=== PATIENT | female | born 1985 | race Caucasian/White ===

== ENCOUNTER → 2019-07-26 | Outpatient (CLI) | payer MEDICAID, SELFPAY ==
[2019-07-26 14:29] LABS: Absolute Lymphocyte Count 1.89 X10^3/uL (0.83-4.51); Absolute Neutrophil Count 5.6 X10^3/uL (2.0-7.7); Basophil# 0.03 X10^3/uL; Basophil% 0.4 % (0-1); Eosinophil# 0.15 X10^3/uL; Eosinophils% 1.8 % (0-5); Hematocrit 40.6 % (37-47); Hemoglobin 13.2 g/dL (12.0-15.0); Lymphocyte # 1.89 X10^3/ul (4.0); Lymphocyte % 23.2 % (19-41); Mean Corp Hgb Conc 32.5 g/dL (32-36); Mean Corpuscular Hgb 30.8 pg (27.0-32.0); Mean Corpuscular Volume 94.9 fL (81-99); Mean Platelet Vol. 10.1 fl (6.2-12.0); Monocyte# 0.51 X10^3/uL; Monocyte% 6.3 % (0-10); NRBC Flagged by Analyzer 0 % (0-5); Neutrophil # 5.55 X10^3/uL (2.7-7.7); Neutrophil % 68.1 % (47-70); Platelet Count 197 K/mm3 (150-450); RBC Distribution Width CV 14.5 % (11.6-14.6); Red Blood Count 4.28 M/mm3 (4.2-5.4); White Blood Count 8.2 K/mm3 (4.4-11.0)
[2019-07-26 14:30] LABS: Color, Urine Yellow (Yellow); Glucose, Dipstick Normal (Normal); Ketone-Dipstick 5 mg/dl (Negative); Leukocyte Esterase-Dipstick 100 /ul (Negative); Nitrite-Dipstick Negative (Negative); Occult Blood-Urine Negative /ul (Negative); Protein-Dipstick 15 mg/dl (Negative); Urine Bilirubin Dipstick Negative (Negative); Urine Clarity Sl. Cloudy (Clear); Urine Urobilinogen 1 mg/dl (Normal); Urine pH 6.5 (5.0 - 8.0)
[2019-07-26 14:39] LABS: Amphetamine Urine VISTA NEGATIVE (<1000 ng/mL); Barbiturate Urine VISTA NEGATIVE (< 200 ng/mL); Benzodiazepine Urine VISTA NEGATIVE (< 200 ng/mL); Cocaine Urine VISTA NEGATIVE (< 300 ng/mL); Ecstacy Urine VISTA NEGATIVE (< 500 ng/mL); Methadone Urine VISTA NEGATIVE (< 300 ng/mL); PCP Urine VISTA NEGATIVE (< 25 ng/mL); THC Urine VISTA NEGATIVE (< 50 ng/mL); Vista UDS pH Range 6
[2019-07-26 14:46] LABS: Thyroid Stim Hormone (TSH) 2.12 uIU/mL (0.358-3.74)
[2019-07-26 21:53] LABS: Chlamydia Trachomatis by PCR Negative (Negative); Neisserai gonorrhoeae by PCR Negative (Negative); Probe Check PASS; Sample Adequacy Control PASS; Specimen Processing Control PASS
[2019-07-27 09:25] LABS: HIV - WCH Non-Reactive (Nonreactive); Hepatitis B Surface Antigen Non-Reactive (Nonreactive); Hepatitis C Antibody Non-Reactive (Nonreactive); Rubella IgG 318.7 IU/mL; Vitamin D,25 Hydroxy 19.8 ng/mL (29.95-100.01)
[2019-07-28 09:54] LABS: Toxoplasma Gondii IgG 36.3 IU/mL (0.0-7.1); Toxoplasma Gondii IgM < 3.0 AU/mL (0.0-7.9)
[2019-07-30 00:53] LABS: Prenatal RPR NONREACTIVE (NONREACTIVE)
[2019-07-30 12:44] LABS: HPV APTIMA, High Risk Positive (Negative)
== END | disposition home or self-care (01) ==
LOC: LABSPEC 13:58
PROVIDERS: Visit Provider Obstetrics & Gynecology
DX: Z34.82 Encounter for supervision of other normal pregnancy, second trimester (principal); Z11.3 Encounter for screening for infections with a predominantly sexual mode of transmission
CPT/HCPCS: 80307; 81002; 82306; 84443; 85025; 86703; 86762; 86777; 86778; 86803; 87340; 87491; 87591; 87624; 88175; G0145

== ENCOUNTER → 2019-08-17 17:42 | Outpatient (CLI) | payer MEDICAID, SELFPAY ==
[2015-10-19 08:22] VITALS: BMI 38.4
--- NOTE | 2019-08-17 16:00 | CER_PTH ---
PATIENT: NENA RODGERS LOC: [facility] U#:[id number] AGE/SX: 40/F ROOM: RE08/17/[address]: Dr. Cindy Mota MD : [id number] BED: DIS: SPEC #: [id number] RECD: 08/17/19 17:42 STATUS: OTTO CHRISTIAN #: [id number] ANA PAULA: 08/17/19 16:[address]: Cindy Matute DEPT: SURGICAL PATHOLOGY RECD BY: Sylvie Valdez ENTERED: 08/18/19 09:46 SP TYPE: CERV OTHR DR: No Primary Care Phys Tissues: Uterine cervix, NOS Procedures: Surgery Specimen Level IV HEADER OPERATION: Colposcopy PRE-OP DIAGNOSIS: LGSIL, positive HR-HPV, pap 07/26/19, LMP 04/14/19, TISSUE SUBMITTED: Cervical biopsy at 3 o'clock MICROSCOPIC DIAGNOSIS Cervix at 3 o'clock, biopsy: Polypoid fragment of endocervix with chronic inflammation. See comment. AM:pam 08/19/19 COMMENT Squamous mucosa is not represented in the biopsy. Clinical correlation is suggested. MICROSCOPIC DESCRIPTION Slides are reviewed. GROSS DESCRIPTION Received is one container labeled with the patient's name and not further designated. The specimen consists of multiple irregular fragments of light crowder soft tissue that in aggregate measure 0.2 x 0.2 x 0.1 cm. The specimen is totally submitted in one cassette. / AM:pam 08/18/19 TC:3 CPT: 51817
== END ==
PROVIDERS: Referring Provider Obstetrics & Gynecology; Visit Provider Obstetrics & Gynecology
DX: R87.612 Low grade squamous intraepithelial lesion on cytologic smear of cervix (LGSIL) (principal); R87.810 Cervical high risk human papillomavirus (HPV) DNA test positive
CPT/HCPCS: 88305

== ENCOUNTER → 2019-10-26 13:16 | Outpatient (CLI) | payer MEDICAID, SELFPAY ==
[2019-10-26 15:53] LABS: Hematocrit 35.4 % (37-47); Hemoglobin 11.4 g/dL (12.0-15.0); Mean Corp Hgb Conc 32.2 g/dL (32-36); Mean Corpuscular Hgb 30.1 pg (27.0-32.0); Mean Corpuscular Volume 93.4 fL (81-99); Mean Platelet Vol. 9.8 fl (6.2-12.0); Platelet Count 190 K/mm3 (150-450); RBC Distribution Width CV 13.6 % (11.6-14.6); RBC Distribution Width SD 45.4 fl (35.1-43.9); Red Blood Count 3.79 M/mm3 (4.2-5.4); White Blood Count 7.7 K/mm3 (4.4-11.0)
[2019-10-26 16:04] LABS: Glucose Challenge Gest 1H 50g 88 mg/dL (70-140)
[2019-10-26 16:12] LABS: Vitamin D,25 Hydroxy 26.1 ng/mL (29.95-100.01)
== END ==
PROVIDERS: Visit Provider Obstetrics & Gynecology
DX: Z34.82 Encounter for supervision of other normal pregnancy, second trimester (principal)
CPT/HCPCS: 36415; 82306; 82950; 85027

== ENCOUNTER 2019-11-01 05:10 | Outpatient (CLI) | payer MEDICAID, SELFPAY ==
[2019-11-01 05:39] VITALS: BMI 31.6
[2019-11-01 06:08] LABS: Bacteria 0 SEEN /hpf (None Seen); Red Blood Cells-Urine 0 SEEN /hpf (0-5); White Blood Cells 0 SEEN /hpf (0-5)
[2019-11-01 06:09] LABS: Color, Urine Yellow (Yellow); Glucose, Dipstick 100 mg/dl (Normal); Ketone-Dipstick 5 mg/dl (Negative); Leukocyte Esterase-Dipstick 25 /ul (Negative); Nitrite-Dipstick Negative (Negative); Occult Blood-Urine Negative /ul (Negative); Protein-Dipstick 30 mg/dl (Negative); Specific Gravity, Urine 1.015 (1.002-1.030); Urine Clarity Sl. Cloudy (Clear); Urine Urobilinogen Normal (Normal)
[2019-11-01 06:12] LABS: Urine Bilirubin Dipstick 1 mg/dL (Negative)
[2019-11-01 06:16] LABS: Amorphous Sediment 1+; Mucous, Urine 3+ /hpf (<or=2+); Squamous Epithelial Cells - UA 5-10 SEEN /hpf (5-10)
[2019-11-01] MEDS: Lactated Ringers 500 ML 999 ML IV (06:35)
[2019-11-01] MEDS: Ondansetron 4 MG/2 ML Vial IV (06:57)
[2019-11-01] MEDS: Lactated Ringers 1,000 ML 125 ML IV (07:07)
[2019-11-01 07:08] LABS: Absolute Lymphocyte Count 0.73 X10^3/uL (0.83-4.51); Absolute Neutrophil Count 5.9 X10^3/uL (2.0-7.7); Basophil# 0.02 X10^3/uL; Basophil% 0.3 % (0-1); Eosinophil# 0.01 X10^3/uL; Eosinophils% 0.1 % (0-5); Hematocrit 37.4 % (37-47); Hemoglobin 12.3 g/dL (12.0-15.0); Lymphocyte # 0.73 X10^3/ul (4.0); Lymphocyte % 10.4 % (19-41); Mean Corp Hgb Conc 32.9 g/dL (32-36); Mean Corpuscular Hgb 30.4 pg (27.0-32.0); Mean Corpuscular Volume 92.3 fL (81-99); Mean Platelet Vol. 9.8 fl (6.2-12.0); Monocyte# 0.28 X10^3/uL; NRBC Flagged by Analyzer 0 % (0-5); Neutrophil # 5.93 X10^3/uL (2.7-7.7); Neutrophil % 84.5 % (47-70); Platelet Count 176 K/mm3 (150-450); RBC Distribution Width CV 13.6 % (11.6-14.6); RBC Distribution Width SD 45.4 fl (35.1-43.9); Red Blood Count 4.05 M/mm3 (4.2-5.4)
[2019-11-01 07:16] LABS: ALB/GLOB Ratio 0.6 RATIO (0.9-2.4); AST(SGOT) 27 U/L (15-37); Alanine Aminotransfer ALT/SGPT 25 U/L (13-56); Albumin, Serum 2.3 g/dL (3.2-5.0); Alkaline Phosphatase 85 U/L (45-117); Anion Gap 9 (5-15); BUN 17 mg/dL (7-18); BUN/Creat Ratio 32.5 RATIO (10-20); Calcium,Total 7.9 mg/dL (8.5-10.1); Chloride 111 mmol/L (98-107); Creatinine, Serum 0.52 mg/dL (0.55-1.02); EST Glomerular Filtration Rate 144 mL/min (>60); Est Glom Filt Rate - Afr Amer 174 mL/min (>60); Estimated Creatinine Clearance 122.84 ml/min; Globulin 4.1 g/dL (2.2-4.2); Glucose 98 mg/dL (74-106); Potassium 3.6 mmol/L (3.5-5.1); Protein, Total 6.4 g/dL (6.4-8.2); Sodium Level 142 mmol/L (136-145)
--- NOTE | 2019-11-01 08:15 | OB.TRI.NOTE ---
History of Present Illness Date of Service: 11/01/19 Was patient seen by the physician?: Yes Reason For Visit: PAIN Date of Service: 11/01/19 Final OWEN: 01/19/20 Final OWEN Source: US <20 weeks Gestational age: 28 Weeks and 5 Days History of Present Illness: Pt c/o RUQ muscular pain beginning approx 1800 last night, followed by vomiting; she did experience a PETTY which has resolved now; she denies fever or generalized malaise; has had very little to eat or drink this morning w/exception of a bottle of Gatorade; does state that her young son came home from his father's yesterday w/vomiting Allergies No Known Allergies Allergy (Verified 11/01/19 05:40) Laboratory Studies: Laboratory Tests 11/01/19 11/01/19 11/01/19 Range/Units 06:50 06:50 05:30 WBC 7.0 (4.4-11.0) K/mm3 RBC 4.05 L (4.2-5.4) M/mm3 Hgb 12.3 (12.0-15.0) g/dL Hct 37.4 (37-47) % MCV 92.3 (81-99) fL MCH 30.4 (27.0-32.0) pg MCHC 32.9 (32-36) g/dL RDW Std Deviation 45.4 H (35.1-43.9) fl RDW Coeff of Caridad 13.6 (11.6-14.6) % Plt Count 176 (150-450) K/mm3 MPV 9.8 (6.2-12.0) fl Immature Gran % (Auto) 0.700 (0.0-0.9) % Neut % (Auto) 84.5 H (47-70) % Lymph % (Auto) 10.4 L (19-41) % [place] % (Auto) 4.0 (0-10) % Eos % (Auto) 0.1 (0-5) % Baso % (Auto) 0.3 (0-1) % Absolute Neuts (auto) 5.9 (2.0-7.7) X10^3/uL Absolute Lymphs (auto) 0.73 L (0.83-4.51) X10^3/uL Nucleated RBC % 0 (0-5) % Sodium 142 (136-145) mmol/L Potassium 3.6 (3.5-5.1) mmol/L Chloride 111 H (98-107) mmol/L Carbon Dioxide 22.0 (21.0-32.0) mmol/L Anion Gap 9 (5-15) BUN 17 (7-18) mg/dL Creatinine 0.52 L (0.55-1.02) mg/dL Estim Creat Clear Calc 122.84 ml/min Est GFR (MDRD) Af Amer 174 (>60) mL/min Est GFR (MDRD) Non-Af 144 (>60) mL/min BUN/Creatinine Ratio 32.5 H (10-20) RATIO Glucose 98 (74-106) mg/dL Calcium 7.9 L (8.5-10.1) mg/dL Total Bilirubin 0.30 (0.20-1.00) mg/dL AST 27 (15-37) U/L ALT 25 (13-56) U/L Alkaline Phosphatase 85 (45-117) U/L Total Protein 6.4 (6.4-8.2) g/dL Albumin 2.3 L (3.2-5.0) g/dL Globulin 4.1 (2.2-4.2) g/dL Albumin/Globulin Ratio 0.6 L (0.9-2.4) RATIO Urine Color Yellow (Yellow) Urine Clarity Sl. Cloudy (Clear) Urine pH 6.0 (5.0 - 8.0) Ur Specific [place] 1.015 (1.002-1.030) Urine Protein 30 H (Negative) mg/dl Urine Glucose (UA) 100 H (Normal) mg/dl Urine Ketones 5 H (Negative) mg/dl Urine Occult Blood Negative (Negative) /ul Urine Nitrite Negative (Negative) Urine Bilirubin 1 H (Negative) mg/dL Urine Urobilinogen Normal (Normal) mg/dl Ur Leukocyte Esterase 25 H (Negative) /ul Urine RBC 0 SEEN (0-5) /hpf Urine WBC 0 SEEN (0-5) /hpf Ur Squamous Epith Cells 5-10 SEEN (5-10) /hpf Amorphous Sediment 1+ Urine Bacteria 0 SEEN (None Seen) /hpf Urine Mucus 3+ (<or=2+) /hpf Physical Exam General: Alert, Oriented x3, Cooperative, No apparent distress HEENT: PERRLA, EOMI Cardiovascular: Regular rate, Regular Rhythm Lungs: Clear to auscultation, Normal air movement Abdomen: Bowel Sounds Present, Soft, Non-Distended, Passing Flatus, Hyperactive Bowel Sounds Extremities:: No edema Neurological: Cranial nerves II-XII grossly intact, Deep Tendon Reflexes 2+/4 and Symmetrical, Neuro grossly intact Estimated gestational size: Appropriate for gestational size - Per Brien NST - FHR Rate Baby A Baseline: 145 Variability:: Moderate Accelerations:: 10 x 10 Decelerations:: None NST Reactive:: Yes, Appropriate for gestational age FHR Category:: Category I Impression/Plan Impression: 34yo at 28w5d gestation by L=14w5d US GI virus Cat 1 FHTs Plan: IV LR, 1L, 500ml bolus then 150 ml/hr Zofran, 4mg IVP x 1 Discharge home when bolus complete w/PTL precautions, rest, increased fluids, BRAT diet, Tylenol for PETTY/muscular aches; RTO next PNV or PRN is s/s persist or worsen
== END 2019-11-01 10:30 | disposition home or self-care (01) ==
LOC: WPOUT 05:16 → WP 05:17
PROVIDERS: Visit Provider Advanced Practice Midwife
DX: O21.2 Late vomiting of pregnancy (principal); Z3A.28 28 weeks gestation of pregnancy
CPT/HCPCS: 96360; 96361; 36415; 59025; 59050; 80053; 81001; 85025; 99218; J7120; G0378; J2405

== ENCOUNTER → 2019-12-23 12:55 | Outpatient (CLI) | payer MEDICAID, SELFPAY ==
[2019-12-23 18:57] LABS: Chlamydia Trachomatis by PCR Negative (Negative); Neisserai gonorrhoeae by PCR Negative (Negative); Probe Check PASS; Sample Adequacy Control PASS; Specimen Processing Control PASS
== END ==
PROVIDERS: Referring Provider Obstetrics & Gynecology; Visit Provider Obstetrics & Gynecology
DX: Z11.3 Encounter for screening for infections with a predominantly sexual mode of transmission (principal)
CPT/HCPCS: 87081; 87491; 87591

== ENCOUNTER → 2019-12-31 13:03 | Outpatient (CLI) | payer MEDICAID, SELFPAY ==
[2019-12-31 13:28] LABS: AST(SGOT) 22 U/L (15-37); Albumin, Serum 2.4 g/dL (3.2-5.0); Alkaline Phosphatase 124 U/L (45-117); Globulin 4.1 g/dL (2.2-4.2); Protein, Total 6.5 g/dL (6.4-8.2); Uric Acid 2.6 mg/dL (2.6-6.0)
[2019-12-31 13:29] LABS: Alanine Aminotransfer ALT/SGPT 19 U/L (13-56); Bilirubin, Direct 0.07 mg/dL (0.00-0.30)
[2019-12-31 14:31] LABS: Hematocrit 37.2 % (37-47); Hemoglobin 11.7 g/dL (12.0-15.0); Mean Corp Hgb Conc 31.5 g/dL (32-36); Mean Corpuscular Hgb 27.9 pg (27.0-32.0); Mean Corpuscular Volume 88.8 fL (81-99); Mean Platelet Vol. 10.7 fl (6.2-12.0); Platelet Count 206 K/mm3 (150-450); RBC Distribution Width CV 14.5 % (11.6-14.6); RBC Distribution Width SD 46.8 fl (35.1-43.9); Red Blood Count 4.19 M/mm3 (4.2-5.4); White Blood Count 9.2 K/mm3 (4.4-11.0)
== END ==
PROVIDERS: Obstetrics & Gynecology; Visit Provider Obstetrics & Gynecology
DX: R10.811 Right upper quadrant abdominal tenderness (principal)
CPT/HCPCS: 36415; 80076; 84550; 85027

== ENCOUNTER 2020-01-09 18:45 | Inpatient (IN) | payer MEDICAID, SELFPAY ==
[2020-01-09 19:39] VITALS: BMI 34.2
[2020-01-09 20:20] LABS: Absolute Lymphocyte Count 2.39 X10^3/uL (0.83-4.51); Absolute Neutrophil Count 6.9 X10^3/uL (2.0-7.7); Basophil# 0.03 X10^3/uL; Basophil% 0.3 % (0-1); Eosinophil# 0.08 X10^3/uL; Eosinophils% 0.8 % (0-5); Hematocrit 37.2 % (37-47); Hemoglobin 11.8 g/dL (12.0-15.0); Lymphocyte # 2.39 X10^3/ul (4.0); Lymphocyte % 23.5 % (19-41); Mean Corp Hgb Conc 31.7 g/dL (32-36); Mean Corpuscular Hgb 27.7 pg (27.0-32.0); Mean Corpuscular Volume 87.3 fL (81-99); Mean Platelet Vol. 10.5 fl (6.2-12.0); Monocyte# 0.73 X10^3/uL; Monocyte% 7.2 % (0-10); NRBC Flagged by Analyzer 0.2 % (0-5); Neutrophil # 6.85 X10^3/uL (2.7-7.7); Neutrophil % 67.5 % (47-70); Platelet Count 206 K/mm3 (150-450); RBC Distribution Width CV 14.7 % (11.6-14.6); Red Blood Count 4.26 M/mm3 (4.2-5.4); White Blood Count 10.2 K/mm3 (4.4-11.0)
[2020-01-09] MEDS: Lactated Ringers 500 ML 999 ML IV (21:05)
[2020-01-09] MEDS: 0.9% Saline Lock 10 ML Syringe IV (21:06)
[2020-01-09] MEDS: Lactated Ringers 1,000 ML 50 ML IV (21:06)
[2020-01-09] MEDS: miSOPROStol 25 MCG TABLET PO (21:34)
--- NOTE | 2020-01-09 23:48 | PCM.HP.BLA ---
History and Physical Date of Admission: 01/09/20 ACOG ANTEPARTUM RECORD - HISTORY AND PHYSICAL (01/09/2020) Name: NENA RODGERS OB Physician: SANJU [place]'s Physician: Dr Barney ...................................................................... : 1985 Age: 34 Address: [address] [place] [address] Phone: (h) [phone] ([phone] Insurance Carrier: [employer] CLAIMS DEPT [id number] Emergency Contact: KATIUSKA RODGERS/ [phone] ...................................................................... Nena is a 34yo at 38w4d gestation by L=8w4d US here for medically indicated IOL for persistent reduced movement; her placenta is anterior; surveillance has been reassuring; she has a history of precipitous delivery on Cytotec alone; upon arival to the unit her cervix was 3/50/-3 per RN exam; she was started on PO Cytotec, 25mcg; she is planning an epidural; she is group B negative and blood type A positive Final OWEN: 01/19/20 By Ultrasound: 8 weeks 4 days PARITY: (G-Total Pregnancies P-Fullterm,Premature,Induced AB,Spont AB, Ectopics, Multiple,Living) OWEN CONFIRMATION: By LMP: 04/14/19 By First Ultrasound Exam: 01/19/20 Final OWEN: 01/19/20 OB PROBLEM LIST: EPIDURAL if IOL LGSIL - HRHPV Toxo IgG positive Weekly monitoring if no FM by 28wga ALLERGIES: NKDA MEDICATIONS: 28 mg-800 mcg tablet 1 PO QD Vitamin D3 4,000 unit capsule One pill by mouth once a day SOCIAL HISTORY: Smoking - Never Alcohol Use - drinks occasionally not while Diet - balanced Diet, caffeine < 2 drinks per day and Water intake tries for some. Lifestyle - high stress lifestyle Exercise - minimal and Walks occ. Enc to walk 20 min daily. 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 . FOB not . Residence - rent home Place of - [place] Hours Worked - 35 HRS Spouse-Sig Other Name - declined Children Name(s) - Suzie (DS), Narciso (SHM) PRIOR DELIVERY HISTORY DEL DATE GEST LAB WT LB WT OZ TYPE ANES LABOR TX 07 Oct 12 40 2 7 13 Vag None No Oct 15 39 3 7 8 Vag Epidural No ANTEPARTUM FLOW CHART VISIT GE RTC FU F F HI U U DATE WK WKS HT PN HR M SS BP ED WT HI GL D EF ST __ ____ ___ __ __ ___ __ __ __ ___ __ __ __ ___ __ 07 Jan 38 SHM 1 38 V + + 104/72 sl 191 3 60 -3 04 Jan 37 CH 6 38 V + + 82/52 2+ 192 - tr 2+ 50 -2 Dec CH 1 38 V + + 120/70 2+ 190 1+ 4+ 2+ 50 -2 Dec SHM 1 37 V + O 100/60 sl 189 tr 1+ 1+ 50 -3 Dec + O 100/70 sl 189 1+ 1+ 09 Dec SHM 2 35 V + + 96/70 sl 185 tr 2+ 03 Dec CH 1 34 + + 98/60 sl 183 tr - Oct 1 32 + + 98/66 sl 179 tr tr Nov 30 + 100/70 sl 180 10 Nov 28 ELB 2 - - + + 96/50 0 180 - - 03 Nov 27 SHM + de 100/58 177 1+ 2+ Oct 27 SHM 3 27 + O 120/78 0 179 tr tr Oct 25 SHM 4 26 ? + o 108/72 0 171 tr tr Aug 19 SHM 4 19 + 0 130/72 0 163 tr - ANTEPARTUM NOTE(S): Jan 07 2020: Jan 04 2020: Dec 31 2019: feeling well, nst+ Dec 23 2019: Feels well Dec 17 2019: See note Dec 09 2019: Not sleeping x 1 week Dec 03 2019: Doing well. Nov 26 2019: Lightheaded for a period during NST Nov 19 2019: Feels well Nov 09 2019: NST for anterior placenta. Nov 02 2019: Oct 26 2019: feeling well. Glucola drawn today. Oct 06 2019: doing well, Aug 30 2019: doing well, comp u/s today COMPREHENSIVE ANTEPARTUM NOTE(S): Jan 04 2020: NST reactive today with FHR baseline of 140. Induction scheduled . SVE today unchanged. Denies headache, blurred vision or RUQ pain. Feeling well and excited for induction. [facility] states they do not have her script for breast pump. Not in the back office or triage room. Will ask at the hospital to resend Rx for one. To schedule 6 week PP visit. - Dec 31 2019: NST today reactive with no UC noted. Feeling well. FHR 135. Reports bilateral lower extremity edema that started about a week ago. Bilateral pedal edema +2, with bilateral ankle and calves +3 and pitting. +2 DTRs. On palpation denies LUQ pain, but severe tenderness with RUQ palpation. States she has had pain in this area the last two days, but assumed it was just the babies position. Denies headache and negative for clonus. Urine +1 protein and +4 glucose. Discussed s/s of pre-eclampsia and even with a normal BP would still need to get labs today. Stat LFTs and Uric acid as well as urine to send out. Will call with results. Understands IOL if elevated labs, otherwise to call if s/s worsen. Will return Friday for NST and visit if labs WNL. IOL planned next at 7pm with Cytotec. - Dec 27 2019: H taken to OB. tkg Dec 23 2019: Nena is here for a . Sammy completed vitals and urine. GBS swab due today. Consents signed. PT feeling well. MK Dec 23 2019: Nena is here for her NST at 363 w 1 d. She states that she is feeling well, that she slept well last night, and has not had any headaches since Friday. Has been working on increasing her water intake. She states reports not feeling any FM this week. Occasional mild cramping noted. Denies spotting/LoF. Slight edema noted below knees. NST reactive, read per Dr. Tom Mota. AW Dec 17 2019: Nena is here for her NST at 35 w 2 d. She states that she has not really felt any FM this last week. Denies spotting/LoF. Reports more cramping, but it's irregular. Slight edema noted below knees. Reports headaches starting over the weekend since last NST; sometimes over her right eye and over bridge of the nose, and at times on the left side of her head. She denies sinus problems, nasal drainage, cough. She states that she is still not sleeping well and wonders if this may contributing to the headaches. States that she hasn't taken anything for the headache, and has not tired Unisom for sleep. Denies visual disturbances. Does have some light sensitivity when she has the headache over her right eye. Denies epigastric pain. DTR's 1+ bilaterally. NST reactive, read per Dr. Tom Mota. Report to Dr. Tom Mota about headaches, 1+ urine protein on urine dip today, B/P; Nena is to try Tylenol, Benadryl and caffeien for headaches, and she should call the office if headaches become worse. AW Dec 09 2019: Nena is here for her NST at 34 w 1 d, she states that she feels okay, but I haven't been able to sleep for almost a week. She feels that part of it may be related to life events. Discussed trying Unisom to aid with sleep. She states that she sees a counselor once a week and this is helpful to her. Nena states that she has not felt as much FM this week. She denies spotting/leaking fluid. Has noted occasional mild cramping. Slight edema noted around ankles. NST category 2, difficult to determine baseline, read per Dr. Tom Mota. BPP done, 07/08. AW Dec 09 2019: Requests sterilization, tubal papers signed. BPP 07/10, -2 for Cat II FHR with indeterminate baseline, otherwise reassuring. Plan for delivery between 37-39wga given decreased FM. FOB involved with now. 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 Dec 03 2019: Nena is here for her NST at 33 w 2 d. She states that she is feeling well, and has noted occasional FM. She denies spotting/leaking fluid/cramping. Slight edema noted below knees. NST Reactive, read per Bonnie Sarkar CNM. AW Dec 03 2019: (f,m,f*) NST reactive. Slight bilateral lower extremity edema at end of the day that resolves with elevation and rest. Wants to discuss IOL at 37 weeks. States that [facility] offered her IOL with last . Looking back in the chart this was because of the anterior placenta with not feeling movement and borderline oligo. Let her know that we don't offer elective IOL until 39 weeks. IOL before is for medical reasons only. She wants to meet with [facility] next visit to discuss her IOL options with an epidural. PABLO is in the [employer] and will be home from 37.0-38.0 weeks. Let her know that unless there was a medical reason for induction not to expect it, but of course discuss it further with MD for reiteration. Otherwise she is feeling well. Feels this baby maybe 2 times a week. FHR 150. Will return in 1 week for NST and PNV. - Nov 26 2019: Feeling well; reports minimal FM r/t anterior placenta, reactive NST today; ; denies UCs, VB, LOF; discussed warning signs, s/s Labor; RTO 1 week for PNV/NST w/[facility]- KVW Nov 26 2019: Nena is here of rhe NST at 32 w 2 d. She states that she feels good, and that this week she has noted more FM. She denies spotting/leaking fluid/cramping. Slight edema noted below knees. 13 minutes into the NST, Nena became lightheaded; B/P at that time was 60/40. Sat up, cool cloth to face, ice water and a granola bar (she had no eaten anything this morning), and after 4 minutes, Nena felt better. B/P at that time was 98/66. Sat up for the rest of the NST. When she became lightheaded and was reposition, FHR did not trace for 3-1/2 minutes, but maternal HR was in 90's-100's (confirmed by RN). NST reactive, read per Noé Pires CNM. Nov 19 2019: Nena is here for her NST at 31 w 2 d. She states that she is feeling well. Feels minimal to no FM. Denies spotting/cramping/leaking fluid. Slight edema noted below knees. NST reactive, several FM's noted and heard on FM; NST read er Dr. Tom Mota. AW Nov 09 2019: Hgb 12.3 g/dl. glucose 98 EB Nov 09 2019: Nena is here for NST @ 29.6 w gestation r/t anterior placenta and feeling very minimal movement. NST reactive with acoustic stim read per EB. Nena is feeling well. Minimal to no edema, some occ at end of day. ALBERT. Nov 02 2019: Nena is here for NST. Ant placenta and she continues to feel extremely minimal movement. Urine dip 1+ protein and 2+ glucose today. States she was in ER for hydration Friday for gastroenteritis which children had and was told glucose in urine. Hasn't eaten much since. Today Frosted Flakes and Gatorade. NST read as reactive by MIHIR. ALBERT. Oct 26 2019: Nena is here for NST and appt. Anterior placenta and she barely feels movement. NST ok per Dr ASH. Enc to take Dec or Jan office Class as she did not meet her goals for with other two babies. Info given. Magdiel MARTÍNEZ. Oct 06 2019: FOB more involved. Discussed PTL precautions, FM. No FM noted. Plan for monitoring weekly if no FM by 28wga. Discussed IOL at 39-40wga if no FM throughout same as before. Labor analgesia reviewed. Aug 30 2019: Nena is here for NOB nurse visit with OWEN 01-19-20 planning a vag del at [facility] with epidural, using Dr Everett Barney for post discharge ped care and to breastfeed for awhile then pump. Nena is a G 3 P 2 with an unplanned pg. She is legally but . FOB is not involved but she is accompanied by his mother who is supportive. Nena has a 7 yo son and a 4 y old daughter at home who are unaware of the pg. She rates her stress level at 3-4 and her EPDS is a 12. 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 She has NKA to [employer], food, [employer] or the environment. Her diet is balanced with no caffeine and very minimal water. She does not like how water tastes and makes her feel sick. IS able to drink Gatorade but it has a lot of sugar.: Suggested low sugar G. She is a lifetime non smoker and denies street drug use. Occ she drinks alcohol but not in pg. She gets minimal exercise and was enc to walk 20 min daily or do yoga for pg DVD. Genetics Screening form completed noting no family issues and she declines CF and AFP. Warning signs in pg reviewed as well as lifting restriction of 20-25#, wearing seatbelt low on her abd, the importance of protein in her diet, reaching office after hours with understanding voiced. She was given a copy of What to Expect today. US done and everything is perfect. Routine labs drawn prev. Enc to call with any concerns. Visit took approx 50 min. Magdiel MARTÍNEZ NEW Aug 30 2019: Anatomy scan today wnl, EFW 20th%, ANTERIOR placenta. Ok for . Aug 17 2019: Gifty is here today for colposcopy. Patient had pap done 07/26/2019 results of LGSIL + HRHPV. Procedure reviewed with patient and consents signed. Patient left urine today protein-trace, glucose-neg. Patient deneis any other questions or concerns at this time. [facility] Aug 17 2019: as above. [facility] Jul 26 2019: Gifty is here today for . Patient is a . States lmp is 04/14/2019 making her 14wks with owen 01/2020. Patient had u/s today for confirmation of she has also been seen at the care center. Patient states that she had some light spotting at the beginning of the but denies any since that time. Patient states that she is currently going through a divorce and that ex is not the FOB, FOB of this baby is not in the picture at this time. Patient has h/o normal pap's with most recent pap in 2014, pap and GC/Ct cultures at today's visit. Educational materials provided and reviewed with patient. [facility] Jul 26 2019: as above. Reports increased stress with unplanned and limited support. She reports approximately 15-20# weight gain already due to stress eating. She is in counseling and plans to increase frequency of appointments. She stopped exercising with diagnosis of . No plans for travel. Does clean a home with cat litter while working. She has no specifica concerns. Inquires about tubal ligation. [facility] REVIEW OF SYSTEMS: GENERAL - Denies fever, or chills SKIN - Denies rash, new skin lesions, or change in moles EYES - Denies blurred vision, or change in visual acuity EARS - Denies ear pain, or difficulty hearing NOSE - Denies nasal congestion, discharge, or bleeding MOUTH - Denies sore throat, or difficulty swallowing NECK - Denies pain or swelling RESPIRATORY - Denies shortness of breath, cough, wheezing CARDIOVASCULAR - Denies palpitations, chest pain, orthopnea, PND, peripheral edema, syncope or claudication GASTROINTESTINAL - Denies nausea, vomiting, diarrhea, constipation, Denies abdominal pain, melena and or bright red blood GENITOURINARY - Denies dysuria, frequency of urination, urgency, or hesitancy MUSCULOSKELETAL - Denies joint or muscle pain, or back pain NEUROLOGICAL - Denies localized numbness, weakness, or tingling PSYCHIATRIC - Denies depression, anxiety, substance abuse or suicide attempts ENDOCRINE - Denies heat or cold intolerance, weight loss or gain, increasing thirst HEMATO-IMMUNOLOGIC - Denies easy bruising, bleeding, oral ulcerations or recurrent infections GENETICS SCREENING: Age 35+ years: No Thalassemia: No Neural Tube Defect: No Down Syndrome: No VIKTOR-SACHS: No Sickle Cell Disease: No Hemophilia: No Musc. Dystrophy: No Cystic Fibrosis: No-declines screening Adina Chorea: No Mental Retardation: No Fragile X: No Other genetic: No Other defects: No SABs/still births: No Drugs since LMP: No INFECTION HISTORY: High risk AIDS: No High risk Hepatitis: No Exposed to TB: No Exposed to Herpes: No Rash/viral illness since LMP: No History of STD: No MENSTRUAL HISTORY: *Menses Amount/Duration: 5-7 daysMenses Regularity: RegularFrequency: monthlyMenarche (Age Onset): 14* PAST SUMMARY: PARITY: 1. Total Pregnancies............ 3 2. Full Term Pregnancies........ 2 3. Premature.................... 0 4. Abortions - Induced.......... 0 5. Abortions - Spontaneous...... 0 6. Ectopics..................... 0 7. Multiple Births.............. 0 8. Living Children.............. 2 PAST #1: Date of :.................. 10/07/12 Gestation Weeks:................ 40 Length of labor(hours):......... 2 Sex:............................ F Weight-lbs:............... 7 Weight-oz:................ 13 Type of Delivery:............... Vag Type of Anesthesia:............. None Place of Delivery:.............. [facility] Treatment of Labor?:.... No Comment: METHERGINE IM X1 PAST #2: Date of :.................. 10/19/15 Gestation Weeks:................ 39 Length of labor(hours):......... 3 Sex:............................ M Weight-lbs:............... 7 Weight-oz:................ 8 Type of Delivery:............... Vag Type of Anesthesia:............. Epidural Place of Delivery:.............. [facility] Treatment of Labor?:.... No Comment: IND. OLIGO. RAPID. Labs for : NENA RODGERS since 04/24/2019 ORDER DATEIN DESCRIPTION VALUE UNITS RANGE A+ COMMENT CBC-COMPLETE BLOOD CNT NO DIFF 12/31/19 NOTE Original Ordering Provider: RAO Sarkar WBC 9.2 K/mm3 4.4-11.0 RBC 4.19 M/mm3 4.2-5.4 L HGB 11.7 g/dL 12.0-15.0 L HCT 37.2 % 37-47 MCV 88.8 fL 81-99 MCH 27.9 pg 27.0-32.0 MCHC 31.5 g/dL 32-36 L RDW CV 14.5 % 11.6-14.6 RDW SD 46.8 fl 35.1-43.9 H PLT 206 K/mm3 150-450 MPV 10.7 fl 6.2-12.0 Reviewed by NIDA URIC ACID 12/31/19 NOTE Original Ordering Provider: Alyssa Durbin URIC 2.6 mg/dL 2.6-6.0 The drugs N-Acetylcysteine and Metamizole may falsely depress this assay. Reviewed by [facility] LIVER PROFILE 12/31/19 NOTE Original Ordering Provider: Alyssa Durbin T PROT 6.5 g/dL 6.4-8.2 ALB 2.4 g/dL 3.2-5.0 L GLOB 4.1 g/dL 2.2-4.2 AST 22 U/L 15-37 ALK P 124 U/L 45-117 H ALT 19 U/L 13-56 T BILI 0.20 mg/dL 0.20-1.00 D BILI 0.07 mg/dL 0.00-0.30 Reviewed by NIDA CULTURE, GROUP B STREPTOCOCCUS 12/23/19 NOTE Original Ordering Provider: Alyssa Durbin SUSAN Culture Group B Beta Streptococcus is not isolated. Reviewed by ALYSSA CT/NG WC BY PCR 12/23/19 NOTE Original Ordering Provider: Alyssa Durbin CHLAM TRAC PCR Negative Negative NG BY PCR Negative Negative Reviewed by ALYSSA CBC w/Diff 11/01/19 White Blood Cell Count Scanned thous/mcl 3.8-10.8 Reviewed by ALYSSA VITAMIN D,25 HYDROXY 10/26/19 NOTE Original Ordering Provider: Alyssa Durbin VITAMIN D 25-OH 26.1 ng/mL 29.95-100.01 L Vitamin D 25(OH) Status Range Deficiency <20 ng/mL (50nmol/L) Insufficiency 20 - 30 ng/mL (50 - 75 nmol/L) Sufficiency 30 - 100 ng/mL (75 - 250 nmol/L) Toxicity >100 ng/mL (>250 nmol/L) Reviewed by ALYSSA GLUCOSE CHALLENGE GEST 1H 50G 10/26/19 NOTE Original Ordering Provider: Alyssa Durbin GLU GEST 50G 1H 88 mg/dL 70-140 Reviewed by ALYSSA CBC-COMPLETE BLOOD CNT NO DIFF 10/26/19 NOTE Original Ordering Provider: Alyssa Durbin WBC 7.7 K/mm3 4.4-11.0 RBC 3.79 M/mm3 4.2-5.4 L HGB 11.4 g/dL 12.0-15.0 L HCT 35.4 % 37-47 L MCV 93.4 fL 81-99 MCH 30.1 pg 27.0-32.0 MCHC 32.2 g/dL 32-36 RDW CV 13.6 % 11.6-14.6 RDW SD 45.4 fl 35.1-43.9 H PLT 190 K/mm3 150-450 MPV 9.8 fl 6.2-12.0 Reviewed by ALYSSA CERVICAL 08/17/19 [facility]~[address] [place], [address]~ Patient: NENA RODGERS : 1985 (34/F) Acct Num: [id number] Phys: Ramakrishna MEDINA,Alyssa Unit Num: [id number] Loc: LAB Specimen: [id number] Received: 08/17/191741 Spec Type: CERV TISSUES 1 TISSUES: Uterine cervix, NOS COMMENT Squamous mucosa is not represented in the biopsy. Clinical correlation is suggested. GROSS DESCRIPTION Received is one container labeled with the patient's name and not further designated. The specimen consists of multiple irregular fragments of light crowder soft tissue that in aggregate measure 0.2 x 0.2 x 0.1 cm. The specimen is totally submitted in one cassette. / AM:pam 08/18/19 TC:3 CPT: 48917 HEADER OPERATION: Colposcopy PRE-OP DIAGNOSIS: LGSIL, positive HR-HPV, pap 07/26/19, LMP 04/14/19, TISSUE SUBMITTED: Cervical biopsy at 3 o'clock MICROSCOPIC DESCRIPTION Slides are reviewed. MICROSCOPIC DIAGNOSIS Cervix at 3 o'clock, biopsy: Polypoid fragment of endocervix with chronic inflammation. See comment. AM: 08/19/19 Signed Victor M Arnoldo, DO 08/19/19 Reviewed by ALYSSA RPR 07/26/19 NOTE Original Ordering Provider: Alyssa Durbin RPR NONREACTIVE NONREACTIVE Reviewed by ALYSSA TOXOPLASMA GONDII IGG 07/26/19 NOTE Original Ordering Provider: Alyssa Durbin TOXOPIGG 36.3 IU/mL 0.0-7.1 H Negative <7.2 Equivocal 7.2 - 8.7 Positive >8.7 Performed at: [facility] [employer] [id number] Photo Stylist: Chip Villalba PhD, Phone: [phone] Reviewed by ALYSSA TOXOPLASMA GONDII IGM 07/26/19 NOTE Original Ordering Provider: Alyssa Durbin TOXOP IGM < 3.0 AU/mL 0.0-7.9 Negative <8.0 Equivocal 8.0 - 9.9 Positive >9.9 TOX. GONDII COM . It is presumed the patient has not been infected with and is not undergoing an acute infection with Toxoplasma. If symptoms persist, submit a new specimen after three weeks. Performed at: [facility] [employer], [place] [id number] Photo Stylist: Chip Villalba PhD, Phone: [phone] Reviewed by ALYSSA HEPATITIS C ANTIBODY 07/26/19 NOTE Original Ordering Provider: Alyssa Durbin HEPATITIS C AB Non-Reactive Nonreactive Non Reactive: < 0.8 Equivocal: >/= 0.8 to < 1.0 Reactive: >/= 1.0 The CDC recommends that a reactive/equivocal HCV antibody result be followed up by the HCV Nucleic Acid Amplification test (610271) Reviewed by ALYSSA HEPATITIS B SURFACE ANTIGEN 07/26/19 NOTE Original Ordering Provider: Alyssa Durbin HEPB SURFACE AG Non-Reactive Nonreactive Reviewed by ALYSSA HIV - [facility] 07/26/19 NOTE Original Ordering Provider: Alyssa Durbin HIV - [facility] Non-Reactive Nonreactive Reviewed by ALYSSA RUBELLA IGG 07/26/19 NOTE Original Ordering Provider: Alyssa Durbin RUBELLA IGG 318.7 IU/mL Antibody results Interpretation of Immune Status < 5 IU/ml Presumed Non-immune 5 - < 10 IU/ml Equivocal > or = 10 IU/ml Presumed Immune Reviewed by ALYSSA VITAMIN D,25 HYDROXY 07/26/19 NOTE Original Ordering Provider: Alyssa Durbin VITAMIN D 25-OH 19.8 ng/mL 29.95-100.01 L Vitamin D 25(OH) Status Range Deficiency <20 ng/mL (50nmol/L) Insufficiency 20 - 30 ng/mL (50 - 75 nmol/L) Sufficiency 30 - 100 ng/mL (75 - 250 nmol/L) Toxicity >100 ng/mL (>250 nmol/L) Reviewed by ALYSSA T AND S-NO CHARGE W/PNP 07/26/19 Reason for Type AND Screen/Red Cells: Surgery? N [facility]~[address] [place], [address]~ BLOOD TYPE GEL A POSITIVE N AB SCREEN GEL NEGATIVE N Reviewed by ALYSSA THYROID STIM HORMONE (TSH) 07/26/19 NOTE Original Ordering Provider: Alyssa Durbin TSH 2.12 uIU/mL 0.358-3.74 Reviewed by ALYSSA URINE DRUG SCREEN (VISTA) 07/26/19 NOTE Original Ordering Provider: Alyssa Durbin TO BE CONFIRMED CONFIRMATORY TESTING FOR ALL POSITIVE URINE DRUG SCREEN RESULTS WILL ONLY BE SENT OUT UPON PHYSICIAN ORDER. VISTA Urine Drug Screen methods provide only preliminary analytical test results. A more specific alternate chemical method must be used in order to obtain a confirmed analytical result. Gas chromatography/mass spectrometery (GC/MS) is the preferred confirmatory method. Clinical consideration and professional judgement should be applied to any drug of abuse test result, particularly when preliminary positive results are used. URINE TCA TESTING MUST BE ORDERED SEPARATELY. USE TEST MNEMONIC: [facility]IST[facility] UDS PH 6 AMPHETAMINES NEGATIVE <1000 ng/mL BARBITIURATES NEGATIVE < 200 ng/mL BENZODIAZIPINE NEGATIVE < 200 ng/mL COCAINE NEGATIVE < 300 ng/mL ECSTACY NEGATIVE < 500 ng/mL METHADONE NEGATIVE < 300 ng/mL OPIATES NEGATIVE < 300 ng/mL PCP NEGATIVE < 25 ng/mL THC NEGATIVE < 50 ng/mL Reviewed by ALYSSA URINALYSIS, ROUTINE (DIPSTICK) 07/26/19 NOTE Original Ordering Provider: Alyssa Durbin COLOR Yellow Yellow CLARITY Sl. Cloudy Clear GLUCOSE, UR Normal mg/dl Normal BILIRUBIN URINE Negative mg/dL Negative KETONE UR 5 mg/dl Negative H SP.GR. DIPSTX 1.020 1.002-1.030 PH UR 6.5 5.0 - 8.0 PROT DIPSTX 15 mg/dl Negative H UROBILI 1 mg/dl Normal H NITRITE UR Negative Negative OCCULT BLOOD-UR Negative /ul Negative LEUK ESTERASE 100 /ul Negative H Reviewed by ALYSSA CBC W/DIFF, AUTOMATED 07/26/19 NOTE Original Ordering Provider: Alyssa Durbin WBC 8.2 K/mm3 4.4-11.0 RBC 4.28 M/mm3 4.2-5.4 HGB 13.2 g/dL 12.0-15.0 HCT 40.6 % 37-47 MCV 94.9 fL 81-99 MCH 30.8 pg 27.0-32.0 MCHC 32.5 g/dL 32-36 RDW CV 14.5 % 11.6-14.6 RDW SD 50.0 fl 35.1-43.9 H PLT 197 K/mm3 150-450 MPV 10.1 fl 6.2-12.0 NEUT% 68.1 % 47-70 LY% 23.2 % 19-41 MONO% 6.3 % 0-10 EO% 1.8 % 0-5 BASO% 0.4 % 0-1 IM GRAN % 0.200 % 0.0-0.9 IG% - Immature Granulocytes (promyelocytes, myelocytes and metamyelocytes) > 1% indicates that a LEFT SHIFT is Present. ABSOLUTE NEUT 5.6 X10 3/uL 2.0-7.7 ABSOLUTE LYMPH 1.89 X10 3/uL 0.83-4.51 NRBC, FLAGGED 0 % 0-5 Reviewed by ALYSSA PAP IG HPV APTIMA 16/18,45 07/26/19 NOTE Original Ordering Provider: Alyssa Durbin DIAGN . H EPITHELIAL CELL ABNORMALITY. LOW GRADE SQUAMOUS INTRAEPITHELIAL LESION (LSIL). ADEQ . Satisfactory for evaluation. No endocervical component is identified. RECOMM . H Suggest follow up as clinically appropriate. PERFORM . Kathy Correa, Saw Superintendent (ASCP) SIGN . Cecil Rothman MD, Pathologist PATH PROV ICD10 . R87.612 TEST METHOD . This liquid based ThinPrep(R) pap test was screened with the use of an image guided system. COMM . . PAPSMR . The Pap smear is a screening test designed to aid in the detection of premalignant and malignant conditions of the uterine cervix. It is not a diagnostic procedure and should not be used as the sole means of detecting cervical cancer. Both false-positive and false-negative reports do occur. HPV APTIMA, HR Positive Negative H This test detects fourteen high-risk HPV types (16/18/31/33/35/39/45/ 51/52/56/58/59/66/68) without differentiation. Performed at: - [facility] [id number] Photo Stylist: Nithya Mendez MD, Phone: [phone] Performed at: G - [facility] [id number] Photo Stylist: Nithya Mendez MD, Phone: [phone] Reviewed by ALYSSA CT/NG [facility] BY PCR 07/26/19 NOTE Original Ordering Provider: [facility] PCR Negative Negative NG BY PCR Negative Negative Reviewed by [facility] PROVIDER SIGNATURE ( REQUIRED) PHYSICAL EXAMINATION General Appearence: 34 yo female in no acute distress Vital Signs: AF, VSS Heart: RRR without rubs or gallops Lungs: CTA x 2 Breasts: deferred Abdomen: gravid Pelvis: Cervix: 3/50/-3 at 204 per RN e xam Presentation: cephalic Fetus: Size: AGA Movement: present Heart: 115 baseline, moderate variability, +accels, occasional variable decelerations UCs: Q 2-4 Impression:34yo at 38w4d gestation by L=8w4d US IOL for persistent reduced movement/anterior placenta Group B negative A positive blood type Cat 2 FHTs, reassuring Plan: Continue with Cytotec cervical ripening per protocol May have epidural upon request Anticipate vaginal delivery
--- NOTE | 2020-01-10 01:59 | PCM.PN.BLA ---
Progress Note S: Feeling contractions, although tolerable; would like epidural before starting Pitocin O: AVSS FHTs:120 baseline, moderate variability, +accel, no decels UCs:Q 2-4 Cervix: 5/50/-3, soft, mid position A: Early labor Connor score 7, favorable for Pitocin IOL Cat 1 FHTs P: Pt may have epidural Begin Pitocin, titrate to maintain adequate labor Anticipate vaginal delivery
[2020-01-10] MEDS: Lactated Ringers 500 ML 999 ML IV ×4 (02:06→10:38)
[2020-01-10] MEDS: 0.9% Saline Lock 10 ML Syringe IV ×2 (02:13→13:58)
[2020-01-10] MEDS: fentaNYL-bupivacaine (epidural) 100 ML BAG EPIDURAL (04:13)
[2020-01-10] MEDS: Oxytocin 30 units/NS 500 ml 30 UNITS/500 ML IV.SOLN IV (04:19)
--- NOTE | 2020-01-10 07:23 | PN_ITS ---
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
[2020-01-10] MEDS: Lactated Ringers 1,000 ML 200 ML IV (08:38)
[2020-01-10] MEDS: Oxytocin 30 units/NS 500 ml 30 UNITS/500 ML IV.SOLN 999 UNITS IV (11:20)
[2020-01-10] MEDS: Methylergonovine 0.2 MG/ML Ampul IM (11:22)
[2020-01-10 13:15] VITALS: BP 106/75; PULSE 89; RESP 18; TEMP 37.1; O2SAT 98
[2020-01-10] MEDS: Ibuprofen 600 MG Tablet PO ×2 (15:24→22:27)
[2020-01-10 16:11] VITALS: BP 109/61; PULSE 112; RESP 18; TEMP 37
--- NOTE | 2020-01-10 16:32 | NURSING ---
Urine red tinged. newton remains in due to moderate perineal and labial edema
[2020-01-10] MEDS: Acetaminophen 500 MG Tablet 1000 MG PO (18:16)
--- NOTE | 2020-01-10 18:16 | PCM.OPRPT ---
Vaginal Delivery Maternal Presentation: Active Labor This note is for today at 1130 Pt presented to L&D last evening for medically indicated Cytotec cervical ripening with likely progression to Pitocin IOL for persistent perception of decreased movement Method of Induction: Pitocin, Cytotec Medical Reason for Induction: Compromise: list: - Persistent perception of decreased movement Amniotic Membrane Rupture Type: Spontaneous Rupture of Membrane time: 1030 Amniotic Fluid Description: Clear Final OWEN: 01/19/20 Final OWEN Source: US <20 weeks Gestational age: 38 Weeks and 6 Days Date of Procedure: 01/10/20 Pre-Operative Diagnosis: Active labor Post-Operative Diagnosis: Surgery/ Procedure Performed: Spontaneous Vaginal Delivery Type of Anesthesia: Epidural Description of Procedure: CTSP when she was C/C/+3; pushed well and delivered a viable female OA to DORIS over a 2nd degree perineal laceration; shoulders and body followed easily; placed on mother's abdomen, dried, stimulated, and bulb suctioned, APGARs9/9; delayed cord clamping x 2 minutes, then cord clamped x 2 by CNM and cut by infant's paternal grandmother under CNM supervision; placenta delivered spontaneously, Traore mechanism, appeared intact, 3-vessel cord, central insertion; profuse bleeding ensued immediately after delivery of placenta, managed with IV Pitocin bolus, fundal massage, IM Methergine, and finally bimanual compression; manual uterine exploration and expression of clots revealed no retained fragments of placenta; patient remained hemodynamically stable throughout; placenta sent to pathology to verify intact; 2nd degree perineal laceration repaired with 3-0 Vicryl, good hemostasis obtained; EBL 800 Lap sponge, raytec, needle and instrument counts correct x 2 with RN Presentation: Vertex, DORIS Placental Delivery Description: Spontaneous Placenta Disposition: Sent to Pathology - to verify intact Cord Vessel Description: 3 Vessels Cord Entanglement: None Estimated Blood Loss: 800 A gender: Female (1 minute): 9 (5 minute): 9 Episiotomy Description: None Laceration: Midline, Perineal Extension/lac, 2nd degree Medications given after delivery: IV Pitocin, IM Methergin Complications: None - hemorrhage following delivery of placenta, Pitocin IV bolus, Methergine IM, and bimanual compression
--- NOTE | 2020-01-10 18:39 | NURSING ---
labia and perineum remain edematous. newton maintained at this time. Ice pack and tucks reapplied.
--- NOTE | 2020-01-10 18:40 | NURSING ---
urine clear yellow to pink now. newton maintained.
[2020-01-10 19:58] VITALS: BP 109/72; PULSE 90; RESP 16; TEMP 37.2
[2020-01-10] MEDS: Senna/Docusate Sodium 1 Tablet PO (22:31)
[2020-01-10 23:02] VITALS: BP 108/70; PULSE 78; RESP 16; TEMP 36.6
[2020-01-11 03:45] VITALS: BP 104/65; PULSE 75; RESP 18; TEMP 36.6
[2020-01-11] MEDS: Ibuprofen 600 MG Tablet PO ×3 (03:54→16:03)
[2020-01-11 04:08] LABS: Hemoglobin 9.2 g/dL (12.0-15.0); Mean Corp Hgb Conc 31.7 g/dL (32-36); Mean Corpuscular Volume 88.1 fL (81-99); Mean Platelet Vol. 10.6 fl (6.2-12.0); Platelet Count 180 K/mm3 (150-450); RBC Distribution Width CV 14.7 % (11.6-14.6); RBC Distribution Width SD 47.2 fl (35.1-43.9); Red Blood Count 3.29 M/mm3 (4.2-5.4); White Blood Count 10.8 K/mm3 (4.4-11.0)
[2020-01-11] MEDS: Acetaminophen 500 MG Tablet 1000 MG PO (07:42)
[2020-01-11 07:51] VITALS: BP 102/66; PULSE 79; RESP 16; TEMP 36.7; O2SAT 96
--- NOTE | 2020-01-11 10:02 | PCM.PN.OB ---
Subjective: Pain well controlled, tolerating diet, passing flatus, nursing well; would like to be discharged home today; planning BLT for contraception Objective: AVSS Breasts filling, nipples atraumatic Fundus firm, midline, u/1, lochia small Perineal repair approximated, minimal edema, no drainage, erythema or ecchymosis noted - Physical Exam Vitals/I&O's: Vital Signs Temp Pulse Resp BP Pulse Ox 98.0 F 79 16 102/66 96 01/11/20 07:51 01/11/20 07:51 01/11/20 07:51 01/11/20 07:51 01/11/20 07:51 Oxygen Delivery Method Room Air Weight: 187 lb 3.2 oz Body Mass Index (BMI) 34.2 Intake and Output for Last 24 Hours 01/09/20 01/10/20 01/11/20 23:59 23:59 23:59 Intake Total 602.5 / 602.5 4917.03 / 4917.03 Output Total 3650 / 3650 200 / 200 Balance 602.5 / 602.5 1267.03 / 1267.03 -200 / -200 General: Alert, Oriented x3, Cooperative, No apparent distress HEENT: PERRLA, EOMI Oral: Moist Mucosa Neck: Supple Lungs: Clear to auscultation, Normal air movement Cardiovascular: Regular rate, Regular Rhythm Abdomen: Bowel Sounds Present, Soft, Non Tender, Non-Distended, Passing Flatus Extremities: No edema, Capillary Refill Less than 3 Seconds, No Calf Tenderness Skin: No rashes Musculoskeletal: No Tenderness to Palpation of Joints or Extremities Neurological: Cranial nerves II-XII grossly intact, Deep Tendon Reflexes 2+/4 and Symmetrical, Neuro grossly intact Psych/Mental Status: Normal Affect, Appropriate, Alert and oriented to time, place, person, mood and affect Laboratory Results 01/11/20 04:00: WBC 10.8, RBC 3.29 L, Hgb 9.2 L, Hct 29.0 L, MCV 88.1, MCH 28.0, MCHC 31.7 L, RDW Std Deviation 47.2 H, RDW Coeff of Caridad 14.7 H, Plt Count 180, MPV 10.6 Current Medications Acetaminophen (Tylenol) 1,000 mg PO Q8H PRN PRN PRN Reason: Pain Score 1-3/10 Last Admin: 01/11/20 07:42 Dose: 1,000 mg Documented by: Bisacodyl (Dulcolax) 10 mg RECTAL UD PRN PRN Reason: If no BM Dibucaine (Dibucaine) 1 applic TOPICAL TID PRN PRN; Protocol PRN Reason: Discomfort Hydrocortisone (Hytone) 1 applic TOPICAL TID PRN PRN; Protocol PRN Reason: Discomfort Ibuprofen (Motrin) 600 mg PO Q6H PRN PRN PRN Reason: Pain Score 1-3 Last Admin: 01/11/20 03:54 Dose: 600 mg Documented by: Methylergonovine Maleate (Methergine) 0.2 mg IM X1 PRN PRN Reason: Excess bleeding/uterine atony Last Admin: 01/10/20 11:22 Dose: 0.2 mg Documented by: Senna/Docusate Sodium (Senokot-S, Nicole-Colace) 1 - 2 tablet PO DAILY PRN PRN PRN Reason: Constipation Last Admin: 01/10/20 22:31 Dose: 1 tablet Documented by: Simethicone (Mylicon) 80 mg PO PCHS PRN PRN Reason: Indigestion/Stomach pain Medical Necessity - Tobacco Use Smoking Status: Never smoker Assessment/Plan Assessment: 34yo G3 now P3003 delivered via at 38w5d gestation by L=8w4d US pp day #1, normal involution Moderate anemia Plan: Discharge teaching completed Ferrous Sulfate, 325mg PO QD Colace, 100mg QHS PRN Constipation Discharge home today RTO 6 weeks for checkup
--- NOTE | 2020-01-11 10:20 | DCINST_ITS ---
Discharge Diet: No Restrictions Discharge Activity: Return to Normal Activity, May Drive, May Shower, May Take a Tub Bath Return to work on:: 02/25/20 May resume sexual activity in: 6-8 weeks Weight Bearing Status: Weight bearing as tolerated Lifting Restrictions: Nothing heavier than the baby for two weeks Additional Activity Instructions:: Minimize cooking, cleaning, shopping, and long car trips for two weeks; try to get at least eight hours sleep in 24 hours for the first two weeks; sleep when the baby sleeps Call your doctor if your incision/area has: Continuous Slow Oozing, Sudden Increased Bleeding, Increased Pain/ Swelling, Increased Redness, Foul Smelling Discharge Call your doctor if you observe: Fever of 101 or Higher, Inability to urinate, I nability to have a bowel movement, Using more than one pad per hour, Shortness of breath, Dizziness, Fainting spells, Chest pain, Increased palpitations (irregular heartbeat), Calf discomfort, Uncontrolled pain Additional Instructions: If you experience any of the following, contact your healthcare provider. * Bleeding that soaks a pad every hour for 2 hours * Fever 100.4 or higher * Unrelieved incision or abdominal pain * Swelling, redness, discharge or bleeding from your incision or episiotomy site * Your incision begins to separate * Problems urinating (including inability to urinate or burning while urinating). * Visual changes * Severe headache * Flu-like symptoms * Pain or redness in one of both of your breasts * Pain, warmth, tenderness or swelling in your legs, especially the calf area * Frequent nausea and vomiting * Symptoms of depression or anxiety If you experience any of the following, call 911 or go to the nearest Emergency Room. * Chest pain * Problems breathing * Seizure activity * Partial or complete paralysis of a body part, slurred speech, weakness or drooping of the face, or a sudden inability to walk or hold your balance Allergies/Adverse Reactions: Allergies No Known Allergies Allergy (Verified 01/09/20 22:26) Medications to take at Discharge Vits [Prenatabs FA] 1 tablet PO DAILY 10/19/15 Docusate Sodium [Colace] 100 mg PO DAILY PRN #30 cap 01/11/20 Ferrous Sulfate 325 mg PO DAILY 30 Days #30 tab 01/11/20 The following prescriptions were given: Docusate Sodium [Colace] 100 mg PO DAILY PRN #30 cap PRN Reason: Constipation Ferrous Sulfate 325 mg PO DAILY 30 Days #30 tab Please Follow Up With: Yulia Pires CNM When: 6 weeks for checkup Primary Care Physician: Care Physician,No Primary [Primary Care Provider] - Test Results: Test results from this visit will be discussed in further detail at your follow- up appointment, if applicable.
[2020-01-11 12:05] VITALS: BP 115/64; PULSE 73; RESP 16; TEMP 36.6; O2SAT 99
[2020-01-11 13:19] VITALS: BP 100/63; PULSE 83; RESP 16; TEMP 36.7; O2SAT 96
[2020-01-11 14:00] VITALS: BP 100/63; PULSE 83; RESP 16; TEMP 36.7; O2SAT 96
== END 2020-01-11 16:30 | disposition home or self-care (01) | DRG 560 ==
PROVIDERS: Obstetrics & Gynecology; Admitting Provider Advanced Practice Midwife; Referring Provider Advanced Practice Midwife; Visit Provider Advanced Practice Midwife
DX: O76 Abnormality in fetal heart rate and rhythm complicating labor and delivery (principal); O70.1 Second degree perineal laceration during delivery; O72.1 Other immediate postpartum hemorrhage; Z3A.38 38 weeks gestation of pregnancy; Z37.0 Single live birth
CPT/HCPCS: 59025; 59050; 85025; 85027; 86850; 86900; 86901; 99218; J7120; A4216; G0378

== ENCOUNTER → 2020-01-12 17:40 | Outpatient (CLI) | payer MEDICAID, SELFPAY ==
[2020-01-09 19:39] VITALS: BMI 34.2
== END ==
PROVIDERS: Referring Provider Obstetrics & Gynecology; Visit Provider Obstetrics & Gynecology
DX: N39.0 Urinary tract infection, site not specified (principal)
CPT/HCPCS: 87086; 87088

== ENCOUNTER 2020-01-22 05:07 | Observation (INO) | payer MEDICAID, SELFPAY ==
[2020-01-22] VITALS (7 sets, daily range): BP systolic 93–110; BP diastolic 64–71; PULSE 76–124; RESP 13–22; TEMP 36.8–37.9; O2SAT 96–100; BMI 32.1; BMI 31.1
[2020-01-22] MEDS: Ondansetron 4 MG/2 ML Vial IV (05:27)
[2020-01-22] MEDS: fentaNYL 100 MCG/2 ML Ampul 25 MCG IV ×2 (05:27→05:37)
[2020-01-22] MEDS: 0.9% Normal Saline 1,000 ML 999 ML IV ×2 (05:28→08:07)
--- NOTE | 2020-01-22 05:29 | US_ITS ---
STUDY: ULTRASOUND OF THE FEMALE PELVIS - COMPLETE REASON FOR EXAM: Female, 34 years old. 12 DAYS POST , HEAVY BLEEDING AT 3AM LMP: TECHNIQUE: Transabdominal TECHNICAL QUALITY: Adequate. COMPARISON: None. FINDINGS: The uterus is anteverted and is in a midline position. The uterus measures 13.3 x 8.4 x 7.3 cm. Normal uterine cervix. The endometrium measures 15 mm in thickness, and is heterogeneous (striated). There is no demonstrated endometrial mass. There is no demonstrated myometrial mass. I.U.D. - The patient does not have an I.U.D. The right ovary is visualized. The right ovary measures 2.9 x 2.8 x 1.3 cm. There is no right ovarian cyst or ovarian mass. There is no visualized right adnexal mass or complex lesion. There is normal arterial and normal venous vascularity. The left ovary is visualized. The left ovary measures 4.7 x 2.7 x 2.4 cm. 2.7 cm follicle or cyst of the left ovary. There is no visualized left adnexal mass or complex lesion. There is normal arterial and normal venous vascularity. There is no fluid in the cul-de-sac. The pre void volume of the bladder was ml. The post void volume of the bladder was ml. Polycystic ovary disease: No. US/Pelvic (Non ) IMPRESSION: Thickened endometrial stripe but no endometrial fluid or mass to suggest retained products of conception. Electronically Signed: Smith Matos MD at 8:09 EST Tel , Service support ,
[2020-01-22 05:33] LABS: Absolute Lymphocyte Count 1.96 X10^3/uL (0.83-4.51); Absolute Neutrophil Count 14.1 X10^3/uL (2.0-7.7); Basophil# 0.05 X10^3/uL; Basophil% 0.3 % (0-1); Eosinophil# 0.27 X10^3/uL; Eosinophils% 1.6 % (0-5); Hematocrit 30.2 % (37-47); Hemoglobin 9.5 g/dL (12.0-15.0); Lymphocyte # 1.96 X10^3/ul (4.0); Lymphocyte % 11.3 % (19-41); Mean Corp Hgb Conc 31.5 g/dL (32-36); Mean Corpuscular Hgb 27.3 pg (27.0-32.0); Mean Corpuscular Volume 86.8 fL (81-99); Mean Platelet Vol. 9.5 fl (6.2-12.0); Monocyte# 0.81 X10^3/uL; Monocyte% 4.7 % (0-10); NRBC Flagged by Analyzer 0 % (0-5); Neutrophil # 14.05 X10^3/uL (2.7-7.7); Neutrophil % 81.2 % (47-70); Platelet Count 298 K/mm3 (150-450); RBC Distribution Width SD 48.3 fl (35.1-43.9); Red Blood Count 3.48 M/mm3 (4.2-5.4); White Blood Count 17.3 K/mm3 (4.4-11.0)
[2020-01-22 05:46] LABS: International Normalized Ratio 1.2; Prothrombin Time (Protime)PT. 14.7 SECONDS (11.7-14.9)
[2020-01-22] MEDS: Methylergonovine 0.2 MG/ML Ampul IM (05:46)
--- NOTE | 2020-01-22 05:46 | ED.VIS.GEN ---
History of Present Illness Chief Complaint: Vag Bleeding Narrative: Patient is a 34-year-old female who presents with heavy vaginal bleeding. She is 12 days . She was induced. She had a vaginal delivery. On review of records patient did have heavy bleeding and was given Methergine and Pitocin and uterine massage was performed. Patient notes that there was a question of retained products at that time. On review of records placenta was sent for pathology to ensure it was intact. Patient's bleeding had improved. She did have a fever at home which she attributed to mastitis. She does have a history of mastitis previously. At about 3 AM this morning she developed sudden onset severe bleeding. She also complains of severe pelvic cramping. No clots that she had noted at home. Past Medical History - Allergies and Home Meds Allergies/Adverse Reactions: Allergies No Known Allergies Allergy (Verified 01/22/20 05:08) Primary Care Physician: Jacob Carrillo DO [Primary Care Provider] - Past Medical History: None Smoking Status: Never smoker Review of Systems All systems negative except as indicated General: Reports: Fever Eyes: Denies: Visual changes - bilaterally ENT: Denies: Bilateral ear pain Cardiovascular: Denies: Chest pain Respiratory: Denies: Dyspnea Gastrointestinal: Denies: Vomiting, Diarrhea Genitourinary: Reports: - - Breast pain, vaginal hemorrhage, pelvic pain Skin: Denies: Rash Neurological: Denies: Headache Hematologic: Denies: Easy bleeding Allergy: Denies: Uticaria Physical Exam Vital Signs/Narrative: Vital Signs Temp Pulse Resp BP Pulse Ox 01/22/20 05:08 100 F H 96 18 93/64 96 Inital Vital Signs reviewed: Yes General: Well nourished, Acute Distress Head: Normocephalic Eyes: EOMI ENT: Moist mucous membranes Neck: Supple Cardiovascular: Regular rhythm, Tachycardia Respiratory: No distress, CTA bilaterally Abdomen: - - Lower abdominal and pelvic tenderness, abdomen is soft no guarding no rebound nondistended : - - Active vaginal bleeding Skin: Normal color Neurological: Alert Psychological: - - Anxious Diagnostic/Tx/Re-eval 01/22/20 05:29 Pelvic (Non ) [US] Stat Laboratory Results 01/22/20 01/22/20 01/22/20 05:23 05:23 05:23 WBC 17.3 H RBC 3.48 L Hgb 9.5 L Hct 30.2 L MCV 86.8 MCH 27.3 MCHC 31.5 L RDW Std Deviation 48.3 H RDW Coeff of Caridad 15.0 H Plt Count 298 MPV 9.5 Immature Gran % (Auto) 0.900 Neut % (Auto) 81.2 H Lymph % (Auto) 11.3 L [place] % (Auto) 4.7 Eos % (Auto) 1.6 Baso % (Auto) 0.3 Absolute Neuts (auto) 14.1 H Absolute Lymphs (auto) 1.96 Nucleated RBC % 0 PT 14.7 INR 1.2 Sodium 139 Potassium 3.4 L Chloride 108 H Carbon Dioxide 25.0 Anion Gap 6 BUN 24 H Creatinine 0.74 Estim Creat Clear Calc 86.32 Est GFR (MDRD) Af Amer 117 Est GFR (MDRD) Non-Af 97 BUN/Creatinine Ratio 32.6 H Glucose 102 Calcium 8.0 L Blood Type Antibody Screen Crossmatch 01/22/20 05:23 WBC RBC Hgb Hct MCV MCH MCHC RDW Std Deviation RDW Coeff of Caridad Plt Count MPV Immature Gran % (Auto) Neut % (Auto) Lymph % (Auto) [place] % (Auto) Eos % (Auto) Baso % (Auto) Absolute Neuts (auto) Absolute Lymphs (auto) Nucleated RBC % PT INR Sodium Potassium Chloride Carbon Dioxide Anion Gap BUN Creatinine Estim Creat Clear Calc Est GFR (MDRD) Af Amer Est GFR (MDRD) Non-Af BUN/Creatinine Ratio Glucose Calcium Blood Type A POSITIVE Antibody Screen NEGATIVE Crossmatch See Detail - Medical Decision Making Patient presented with significant active vaginal bleeding. A large orange size clot and multiple small clots were manually removed. Uterine massage was performed. Bleeding does appear to have been improved. IV fluids and TXA were ordered. I spoke to obstetrics on-call, Dr. Lyle who recommended Pitocin Methergine and a stat ultrasound and will evaluate patient here in the emergency department. Laboratory studies were sent and I also ordered type and cross for packed red blood cells. Laboratory studies as above. Patient was given fentanyl for pain. Ultrasound was not immediately available although we did request that they come in. Dr. Lyle did see the patient here in the emergency department and remove another very large clot and patient's symptoms significantly improved. At the time of this dictation a pelvic ultrasound is pending and obstetrics asked that we contact them with the results for final disposition. Patient signed out the oncoming emergency physician to follow-up on this study. - Critical Care Time Critical care time (excluding procedures): 30-74 minutes, Discussing w/Consultants, Performing Direct Patient Care at Bedside ED Disposition - Plan for ED Patient: Diagnosis: hemorrhage Referrals: Jacob Carrillo DO [Primary Care Provider] -
[2020-01-22 05:47] LABS: Anion Gap 6 (5-15); BUN 24 mg/dL (7-18); BUN/Creat Ratio 32.6 RATIO (10-20); Chloride 108 mmol/L (98-107); Creatinine, Serum 0.74 mg/dL (0.55-1.02); EST Glomerular Filtration Rate 97 mL/min (>60); Est Glom Filt Rate - Afr Amer 117 mL/min (>60); Estimated Creatinine Clearance 86.32 ml/min; Glucose 102 mg/dL (74-106); Potassium 3.4 mmol/L (3.5-5.1); Sodium Level 139 mmol/L (136-145)
[2020-01-22] MEDS: Oxytocin 30 units/NS 500 ml 30 UNITS/500 ML IV.SOLN 167 UNITS IV (05:56)
[2020-01-22] MEDS: fentaNYL 100 MCG/2 ML Ampul 50 MCG IV ×2 (06:02→06:40)
--- NOTE | 2020-01-22 06:43 | PCM.CONS.GEN ---
Problem List (1) Delayed hemorrhage Status: Acute Reason for Consult Date of Consultation: 01/22/20 Reason for Consultation: vaginal bleeding History of Present Illness: The patient is a 34 year old F presents with acute bleeding since 3 AM passing clots. 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 She was discharged after routine recovery and then presented today with increased bleeding. White blood cell count was elevated at 17 and has a low-grade temp of 100. Past Medical History Allergies No Known Allergies Allergy (Verified 01/22/20 05:08) Home Medications: Ambulatory Orders Medication Instructions Recorded Ferrous Sulfate 325 mg PO DAILY 30 Days #30 tab 01/11/20 Surgical History: - - 3 vaginal deliveries- most recent 2 weeks ago with mild PPH treated with methergine and pitocin Smoking Status: Never smoker Review of Systems Constitutional: Denies: Fever, Night Sweats Cardiovascular: Denies: Chest Pain Respiratory: Denies: Cough Gastrointestinal: Reports: Abdominal Pain, Nausea Genitourinary: Denies: Dysuria Gynecological: Reports: Vaginal bleeding. Denies: Breast symptoms Musculoskeletal: Denies: Back Pain Patient Problems: Active and Suspected Problems Delayed hemorrhage (Acute) hemorrhage (Acute) - Physical Exam Vitals/I&O's: Vital Signs Temp Pulse Resp BP Pulse Ox 100 F H 124 H 22 H 105/68 100 01/22/20 05:08 01/22/20 06:06 01/22/20 06:06 01/22/20 06:06 01/22/20 06:06 Oxygen Delivery Method Room Air Weight: 175 lb 14.862 oz Body Mass Index (BMI) 32.1 Intake and Output for Last 24 Hours 01/20/20 01/21/20 01/22/20 23:59 23:59 23:59 Intake Total 848.22 / 848.22 Balance 848.22 / 848.22 General: Alert, Oriented x3 HEENT: Normocephalic Oral: Moist Mucosa Lungs: Clear to auscultation, Normal air movement Cardiovascular: Regular rate, Regular Rhythm Abdomen: Soft, Tender - uterine, firm Extremities: No edema Skin: No rashes 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 vagina and uterus with no tissue present Laboratory Results 01/22/20 05:23: WBC 17.3 H, RBC 3.48 L, Hgb 9.5 L, Hct 30.2 L, MCV 86.8, MCH 27.3, MCHC 31.5 L, RDW Std Deviation 48.3 H, RDW Coeff of Caridad 15.0 H, Plt Count 298, MPV 9.5, Immature Gran % (Auto) 0.900, Neut % (Auto) 81.2 H, Lymph % (Auto) 11.3 L, [place] % (Auto) 4.7, Eos % (Auto) 1.6, Baso % (Auto) 0.3, Absolute Neuts (auto) 14.1 H, Absolute Lymphs (auto) 1.96, Nucleated RBC % 0 01/22/20 05:23: PT 14.7, INR 1.2 01/22/20 05:23: Sodium 139, Potassium 3.4 L, Chloride 108 H, Carbon Dioxide 25.0, Anion Gap 6, BUN 24 H, Creatinine 0.74, Estim Creat Clear Calc 86.32, Est GFR (MDRD) Af Amer 117, Est GFR (MDRD) Non-Af 97, BUN/Creatinine Ratio 32.6 H, Glucose 102, Calcium 8.0 L 01/22/20 05:23: Blood Type A POSITIVE, Antibody Screen NEGATIVE, Crossmatch See Detail Current Medications Oxytocin/Sodium Chloride () 30 units in 500 mls @ 167 mls/hr IV .Q3H GREYSON Last Infusion: 01/22/20 06:04 Dose: 334 mls/hr Documented by: Assessment/Plan All Active Problems Delayed hemorrhage (Acute) hemorrhage (Acute) 34-year-old G3, P3 status post vaginal delivery 2 weeks ago with delayed hemorrhage and suspected endometritis Hemoglobin stable and hemodynamically stable. IV pain medication given due to severe cramping. Pelvic exam with removal of clot resulted in relief and improvement in bleeding. TXA and Methergine given. Ultrasound ordered to determine if any retained products- lining 1.4 cm. plan admit for observation and sepsis workup- give Unasyn IV for suspicion of endometritis. cultures sent and lactate ordered. Multi Select Codes - Visit Charges Observation E&M Codin Initial observation care L3
--- NOTE | 2020-01-22 07:58 | ED.RN ---
DR. WHITFIELD UPDATED ON VITALS.
--- NOTE | 2020-01-22 08:17 | ED.DCSUM_ITS ---
- ER Visit Summary Date of Service: 01/22/20 Chief Complaint: [Addendum to initial dictation by Dr. [place]] History of Present Illness: The patient is a 34 F [presented with hemorrhage. Patient is 12 days . Patient was noted to be tachycardic and hypotensive on arrival. Patient was typed and screened for 4 units of blood. Patient was given IV fluids. Patient was seen by RECONCILIATION ANALYST who performed an exam and ordered an ultrasound to rule out retained products. Case turned ov er to mn by ED physician this morning awaiting ultrasound results and final disposition. While in the department patient developed a low-grade fever to 100.2. She has had low blood pressures in the 80s systolic at times to low 100s systolic. Patient meets sepsis criteria. Patient was discussed with Dr. Genia Lyle who evaluated the patient's ultrasound and did not feel that there was any evidence of retained products. I was asked to start patient on Unasyn. Patient had sepsis work-up initiated.] Physical Examination: [HEENT-PERRLA, EOMI. Cranial nerves II through XII grossly intact. TMs clear. Mucous membranes moist. No adenopathy. Cardiovascular-regular rate and rhythm without murmur or ectopy Lungs-clear to auscultation, chest wall stable without crepitus or subcu emphysema Abdomen-normoactive bowel sounds, soft, nontender, no rebound or rigidity, no peritoneal signs. Extremities-intact ?4, normal range of motion, normal pulses, atraumatic] Test Results: [Lactate and urinalysis ordered and pending. Blood and urine cultures ordered and pending.] Emergency Department Course and Treatment: [Patient started on Unasyn.] Patient was ordered a second liter of normal saline. Treatment Plan: [Admit for fluids and IV antibiotics] Disposition: [Admit] Impression: [ hemorrhage Endometritis] This note was generated with [employer] dictation software. It may contain incorrect words, spelling, and punctuation that were not noted in review of the chart prior to signing ED Disposition - Plan for ED Patient: Diagnosis: hemorrhage Referrals: Jacob Carrillo DO [Primary Care Provider] -
[2020-01-22 08:48] LABS: Lactic Acid 0.6 mmol/L (0.4-1.9)
[2020-01-22 09:06] LABS: Absolute Lymphocyte Count 1.36 X10^3/uL (0.83-4.51); Absolute Neutrophil Count 7.8 X10^3/uL (2.0-7.7); Basophil# 0.01 X10^3/uL; Basophil% 0.1 % (0-1); Eosinophil# 0.06 X10^3/uL; Eosinophils% 0.6 % (0-5); Hematocrit 24.5 % (37-47); Hemoglobin 7.6 g/dL (12.0-15.0); Lymphocyte # 1.36 X10^3/ul (4.0); Mean Corpuscular Hgb 27.4 pg (27.0-32.0); Mean Corpuscular Volume 88.4 fL (81-99); Mean Platelet Vol. 9.5 fl (6.2-12.0); Monocyte# 0.44 X10^3/uL; Monocyte% 4.5 % (0-10); NRBC Flagged by Analyzer 0 % (0-5); Neutrophil # 7.81 X10^3/uL (2.7-7.7); Neutrophil % 80.5 % (47-70); Platelet Count 207 K/mm3 (150-450); RBC Distribution Width SD 48.6 fl (35.1-43.9); Red Blood Count 2.77 M/mm3 (4.2-5.4); White Blood Count 9.7 K/mm3 (4.4-11.0)
[2020-01-22] MEDS: 0.9% Normal Saline 1,000 ML 150 ML IV (10:15)
--- NOTE | 2020-01-22 10:27 | PN_ITS ---
Progress Note Assumed care this morning and patient seen approximately 0930h. She was without complaints and reported feeling much better since clots evacuated and started antibiotics. Reviewed plan of care further for 24h observation, IV antibiotics. Family member is bring her breast pump from home. No pump and dump indicated. Reviewed plan with nursing staff. Exam deferred. Labs reviewed, not consistent with sepsis, lactate 0.6. Possible hemoconcentration prior given elevated BUN/Cr, leukocytosis (wbc 17.3--> 9.7). Recent drop in H/H now post 2L IVF, in addition to EBL. Pt otherwise asx. Plan for rpt CBC at 4pm. T&C on hold. Continue antibiotics as planned. Laboratory Tests 01/22/20 01/22/20 01/22/20 Range/Units 08:47 08:15 05:23 WBC 9.7 (4.4-11.0) K/mm3 RBC 2.77 L (4.2-5.4) M/mm3 Hgb 7.6 L (12.0-15.0) g/dL Hct 24.5 L (37-47) % MCV 88.4 (81-99) fL MCH 27.4 (27.0-32.0) pg MCHC 31.0 L (32-36) g/dL RDW Std Deviation 48.6 H (35.1-43.9) fl RDW Coeff of Caridad 15.0 H (11.6-14.6) % Plt Count 207 (150-450) K/mm3 MPV 9.5 (6.2-12.0) fl Immature Gran % (Auto) 0.300 (0.0-0.9) % Neut % (Auto) 80.5 H (47-70) % Lymph % (Auto) 14.0 L (19-41) % [place] % (Auto) 4.5 (0-10) % Eos % (Auto) 0.6 (0-5) % Baso % (Auto) 0.1 (0-1) % Absolute Neuts (auto) 7.8 H (2.0-7.7) X10^3/uL Absolute Lymphs (auto) 1.36 (0.83-4.51) X10^3/uL Nucleated RBC % 0 (0-5) % PT (11.7-14.9) SECONDS INR Sodium (136-145) mmol/L Potassium (3.5-5.1) mmol/L Chloride (98-107) mmol/L Carbon Dioxide (21.0-32.0) mmol/L Anion Gap (5-15) BUN (7-18) mg/dL Creatinine (0.55-1.02) mg/dL Estim Creat Clear Calc ml/min Est GFR (MDRD) Af Amer (>60) mL/min Est GFR (MDRD) Non-Af (>60) mL/min BUN/Creatinine Ratio (10-20) RATIO Glucose (74-106) mg/dL Lactic Acid 0.6 (0.4-1.9) mmol/L Calcium (8.5-10.1) mg/dL Blood Type A POSITIVE Antibody Screen NEGATIVE Crossmatch See Detail 01/22/20 01/22/20 01/22/20 Range/Units 05:23 05:23 05:23 WBC 17.3 H (4.4-11.0) K/mm3 RBC 3.48 L (4.2-5.4) M/mm3 Hgb 9.5 L (12.0-15.0) g/dL Hct 30.2 L (37-47) % MCV 86.8 (81-99) fL MCH 27.3 (27.0-32.0) pg MCHC 31.5 L (32-36) g/dL RDW Std Deviation 48.3 H (35.1-43.9) fl RDW Coeff of Caridad 15.0 H (11.6-14.6) % Plt Count 298 (150-450) K/mm3 MPV 9.5 (6.2-12.0) fl Immature Gran % (Auto) 0.900 (0.0-0.9) % Neut % (Auto) 81.2 H (47-70) % Lymph % (Auto) 11.3 L (19-41) % [place] % (Auto) 4.7 (0-10) % Eos % (Auto) 1.6 (0-5) % Baso % (Auto) 0.3 (0-1) % Absolute Neuts (auto) 14.1 H (2.0-7.7) X10^3/uL Absolute Lymphs (auto) 1.96 (0.83-4.51) X10^3/uL Nucleated RBC % 0 (0-5) % PT 14.7 (11.7-14.9) SECONDS INR 1.2 Sodium 139 (136-145) mmol/L Potassium 3.4 L (3.5-5.1) mmol/L Chloride 108 H (98-107) mmol/L Carbon Dioxide 25.0 (21.0-32.0) mmol/L Anion Gap 6 (5-15) BUN 24 H (7-18) mg/dL Creatinine 0.74 (0.55-1.02) mg/dL Estim Creat Clear Calc 86.32 ml/min Est GFR (MDRD) Af Amer 117 (>60) mL/min Est GFR (MDRD) Non-Af 97 (>60) mL/min BUN/Creatinine Ratio 32.6 H (10-20) RATIO Glucose 102 (74-106) mg/dL Lactic Acid (0.4-1.9) mmol/L Calcium 8.0 L (8.5-10.1) mg/dL Blood Type Antibody Screen Crossmatch STROKE Vital Signs/Narrative: Vital Signs Temp Pulse Resp BP Pulse Ox 01/22/20 09:28 98.3 F 78 16 108/66 98 01/22/20 07:51 100.2 F H 89 13 95/69 96
[2020-01-22] MEDS: Potassium Chloride 10mEq/100mL 10 MEQ/100 ML IV.SOLN. 100 MEQ IV BOLUS ×2 (11:31→12:36)
[2020-01-22 13:57] LABS: Bacteria 0 SEEN /hpf (None Seen); Mucous, Urine 0 SEEN /hpf (<or=2+); Squamous Epithelial Cells - UA 0 SEEN /hpf (5-10)
[2020-01-22 13:59] LABS: Color, Urine Yellow (Yellow); Glucose, Dipstick Normal (Normal); Ketone-Dipstick 50 mg/dl (Negative); Leukocyte Esterase-Dipstick 25 /ul (Negative); Nitrite-Dipstick Negative (Negative); Occult Blood-Urine 50 /ul (Negative); Protein-Dipstick 15 mg/dl (Negative); Urine Bilirubin Dipstick Negative (Negative); Urine Clarity Clear (Clear); Urine Urobilinogen Normal (Normal)
[2020-01-22 14:13] LABS: Red Blood Cells-Urine 10-25 SEEN /hpf (0-5); White Blood Cells 0-5 SEEN /hpf (0-5)
[2020-01-22 16:23] LABS: Hematocrit 24.3 % (37-47); Hemoglobin 7.4 g/dL (12.0-15.0); Mean Corp Hgb Conc 30.5 g/dL (32-36); Mean Corpuscular Hgb 27.4 pg (27.0-32.0); Mean Platelet Vol. 9.9 fl (6.2-12.0); Platelet Count 233 K/mm3 (150-450); RBC Distribution Width CV 15.3 % (11.6-14.6); RBC Distribution Width SD 50.1 fl (35.1-43.9); White Blood Count 8.7 K/mm3 (4.4-11.0)
[2020-01-22] MEDS: 0.9% Saline Lock 10 ML Syringe IV (23:50)
[2020-01-23] VITALS (12 sets, daily range): BP systolic 91–112; BP diastolic 51–68; PULSE 61–87; RESP 14–18; TEMP 36.2–37.2; O2SAT 98–99
[2020-01-23] MEDS: 0.9% Saline Lock 10 ML Syringe IV (05:24)
[2020-01-23 06:16] LABS: Absolute Lymphocyte Count 1.63 X10^3/uL (0.83-4.51); Basophil# 0.02 X10^3/uL; Basophil% 0.4 % (0-1); Eosinophil# 0.27 X10^3/uL; Eosinophils% 6.1 % (0-5); Hematocrit 22.1 % (37-47); Hemoglobin 6.6 g/dL (12.0-15.0); Lymphocyte # 1.63 X10^3/ul (4.0); Lymphocyte % 36.5 % (19-41); Mean Corp Hgb Conc 29.9 g/dL (32-36); Mean Corpuscular Hgb 26.7 pg (27.0-32.0); Mean Corpuscular Volume 89.5 fL (81-99); Mean Platelet Vol. 9.9 fl (6.2-12.0); Monocyte# 0.48 X10^3/uL; Monocyte% 10.8 % (0-10); NRBC Flagged by Analyzer 0 % (0-5); Neutrophil # 2.02 X10^3/uL (2.7-7.7); Neutrophil % 45.3 % (47-70); Platelet Count 193 K/mm3 (150-450); RBC Distribution Width CV 15.4 % (11.6-14.6); RBC Distribution Width SD 50.6 fl (35.1-43.9); Red Blood Count 2.47 M/mm3 (4.2-5.4); White Blood Count 4.5 K/mm3 (4.4-11.0)
[2020-01-23 06:34] LABS: Anion Gap 4 (5-15); BUN 15 mg/dL (7-18); BUN/Creat Ratio 31.2 RATIO (10-20); Calcium,Total 7.2 mg/dL (8.5-10.1); Chloride 116 mmol/L (98-107); Creatinine, Serum 0.48 mg/dL (0.55-1.02); EST Glomerular Filtration Rate 159 mL/min (>60); Est Glom Filt Rate - Afr Amer 192 mL/min (>60); Estimated Creatinine Clearance 133.08 ml/min; Glucose 87 mg/dL (74-106); Potassium 3.5 mmol/L (3.5-5.1); Sodium Level 144 mmol/L (136-145)
--- NOTE | 2020-01-23 09:26 | PCM.PN.OB ---
Patient Problems: Active and Suspected Problems Delayed hemorrhage (Acute) hemorrhage (Acute) Subjective: Denies lightheadedness, shortness of breath, chest pain, palpitations. She feels well this morning. Denies heavy vaginal bleeding and reports it is light. She looks forward to going home today and continues pumping. Objective: AVSS - Physical Exam Vitals/I&O's: Vital Signs Temp Pulse Resp BP Pulse Ox 98.2 F 67 16 91/55 L 98 01/23/20 08:34 01/23/20 08:34 01/23/20 08:34 01/23/20 08:34 01/23/20 08:34 Oxygen Delivery Method Room Air Weight: 77.111 kg Body Mass Index (BMI) 31.1 Orthostatic Vital Signs Start: 01/23/20 07:15 Freq: q24h Status: Active Protocol: Activity Type Activity Date Activity User E-Sign Co-Sign Detail Recorded Client Recorded Date Recorded By Document 01/23/20 07:15 JAY [id number] 01/23/20 07:16 JAY 01/23/20 07:15 Orthostatic Vitals Standing -Blood Pressure (90/60-120/80) 99/68 -Extremity Use Left Arm -Pulse Rate (60-100) 87 Sitting -Blood Pressure (90/60-120/80) 100/64 -Extremity Use Left Arm -Pulse Rate (60-100) 83 Lying -Blood Pressure (90/60-120/80) 100/64 -Extremity Use Left Arm -Pulse Rate (60-100) 67 Intake and Output for Last 24 Hours 01/21/20 01/22/20 01/23/20 23:59 23:59 23:59 Intake Total 4342.45 / 4702.45 653.25 / 653.25 Balance 4342.45 / 4702.45 653.25 / 653.25 General: Alert, Oriented x3, Cooperative, No apparent distress HEENT: Atraumatic, Normocephalic Lungs: Clear to auscultation, Normal air movement Cardiovascular: Regular rate, Regular Rhythm Abdomen: Soft, Non Tender, Non-Distended, - - fundus firm and more than 4 fw below umbilicus Extremities: No edema, No Calf Tenderness Neurological: Neuro grossly intact Psych/Mental Status: Normal Affect, Appropriate, Alert and oriented to time, place, person, mood and affect Laboratory Results 01/22/20 05:23: Blood Type A POSITIVE, Antibody Screen NEGATIVE, Crossmatch See Detail 01/22/20 15:57: WBC 8.7, RBC 2.70 L, Hgb 7.4 L, Hct 24.3 L, MCV 90.0, MCH 27.4, MCHC 30.5 L, RDW Std Deviation 50.1 H, RDW Coeff of Caridad 15.3 H, Plt Count 233, MPV 9.9 01/22/20 : Urine Color Yellow, Urine Clarity Clear, Urine pH 6.0, Ur Specific [place] 1.020, Urine Protein 15 H, Urine Glucose (UA) Normal, Urine Ketones 50 H, Urine Occult Blood 50 H, Urine Nitrite Negative, Urine Bilirubin Negative, Urine Urobilinogen Normal, Ur Leukocyte Esterase 25 H, Urine RBC 10-25 SEEN, Urine WBC 0-5 SEEN, Ur Squamous Epith Cells 0 SEEN, Urine Bacteria 0 SEEN, Urine Mucus 0 SEEN 01/23/20 05:45: WBC 4.5, RBC 2.47 L, Hgb 6.6 L, Hct 22.1 L, MCV 89.5, MCH 26.7 L, MCHC 29.9 L, RDW Std Deviation 50.6 H, RDW Coeff of Caridad 15.4 H, Plt Count 193, MPV 9.9, Immature Gran % (Auto) 0.900, Neut % (Auto) 45.3 L, Lymph % (Auto) 36.5, [place] % (Auto) 10.8 H, Eos % (Auto) 6.1 H, Baso % (Auto) 0.4, Absolute Neuts (auto) 2.0, Absolute Lymphs (auto) 1.63, Nucleated RBC % 0 01/23/20 05:45: Sodium 144, Potassium 3.5, Chloride 116 H, Carbon Dioxide 24.0, Anion Gap 4 L, BUN 15, Creatinine 0.48 L, Estim Creat Clear Calc 133.08, Est GFR (MDRD) Af Amer 192, Est GFR (MDRD) Non-Af 159, BUN/Creatinine Ratio 31.2 H, Glucose 87, Calcium 7.2 L Current Medications Acetaminophen (Tylenol) 650 mg PO Q6H PRN PRN PRN Reason: Pain Score 1-10/Temp > 100.7 F Docusate Sodium (Colace) 100 mg PO BID PRN PRN PRN Reason: Constipation Famotidine (Pepcid) 20 mg PO BID [facility] Last Admin: 01/22/20 21:16 Dose: Not Given Documented by: Hydromorphone HCl (Dilaudid Inj) 1 mg IV Q4H PRN PRN PRN Reason: Pain Score 6-10/10 Ampicillin Sodium/Sulbactam (Sodium 3 gm/ Sodium Chloride) 112 mls @ 150 mls/hr IV Q6 [place] Last Infusion: 01/23/20 06:16 Dose: Infused Documented by: Sodium Chloride () 250 mls @ 15 mls/hr IV .[id number] PRN PRN Reason: Saline Flush Last Infusion: 01/23/20 06:16 Dose: 15 mls/hr Documented by: Sodium Chloride () 250 mls @ 15 mls/hr IV .[id number] PRN PRN Reason: Additional IVPB Infusion Calcium Gluconate 1 gm/ (Dextrose) 60 mls @ 60 mls/hr IV X1 ONE Stop: 01/23/20 09:29 Ibuprofen (Motrin) 400 mg PO Q4H PRN PRN PRN Reason: Pain Score 1-10/Temp > 100.7 F Oxycodone HCl (Oxyir) 10 mg PO Q4H PRN PRN PRN Reason: Pain Score 4-5/10 Promethazine HCl (Phenergan) 25 mg IM Q6H PRN PRN PRN Reason: Breakthrough nausea/vomiting Sodium Chloride () 10 - 40 ml IV UD PRN PRN Reason: SALINE FLUSH Last Admin: 01/23/20 05:24 Dose: 10 ml Documented by: Medical Necessity - Tobacco Use Smoking Status: Never smoker Assessment/Plan All Active Problems Delayed hemorrhage (Acute) hemorrhage (Acute) 34yo s/p delayed hemorrhage with anemia and orthostasis. Transfuse 2 units packed RBCs. Calcium is low we will replete. Plan for discharge home later today with outpatient follow-up to repeat CBC.
--- NOTE | 2020-01-23 09:36 | DCINST_ITS ---
- Discharge Diagnoses Current Active Problems: Current Active and Chronic Problems Delayed hemorrhage (Acute) hemorrhage (Acute) You will use the following diet at home:: No restrictions Your food should be the consistency of: Regular Discharge Activity: Return to Normal Activity, May Shower, May Take a Tub Bath May resume sexual activity in: 4 weeks Call your doctor if your incision/area has: Sudden Increased Bleeding Call your doctor if you observe: Fever of 101 or Higher, Inability to urinate, Inability to have a bowel movement, Using more than one pad per hour, Shortness of breath, Chest pain, Calf discomfort, Uncontrolled pain Additional Instructions: Please continue taking your vitamin once a day and increase your iron supplement to twice a day. Allergies/Adverse Reactions: Allergies No Known Allergies Allergy (Verified 01/22/20 05:08) Medications to take at Discharge Ferrous Sulfate 325 mg PO DAILY 30 Days #30 tab 01/11/20 Primary Care Physician: Jacob Carrillo DO [Primary Care Provider] - Test Results: Test results from this visit will be discussed in further detail at your follow- up appointment, if applicable. Please Follow Up With: Cindy Durbin MD When: 2-5 days
== END 2020-01-23 09:38 | disposition home or self-care (01) ==
LOC: ED 05:33 → PCU 08:33
PROVIDERS: Emergency Medicine; Obstetrics & Gynecology; Admitting Provider Obstetrics & Gynecology; Emergency Provider Emergency Medicine; PCP Student in an Organized Health Care Education/Training Program; Visit Provider Obstetrics & Gynecology
DX: O72.2 Delayed and secondary postpartum hemorrhage (principal); D64.9 Anemia, unspecified
CPT/HCPCS: 36415; 36430; 76856; 80048; 81001; 83605; 85025; 85027; 85610; 86850; 86900; 86901; 86920; 86921; 86922; 87040; 87086; 87088; 94762; 96361; 96365; 96366; 96367; 96372; 96375; 96376; 99218; 99285; J7030; J7040; J7050; P9016; A4216; G0378; J0295; J0610; J2405

== ENCOUNTER → 2020-01-26 11:23 | Outpatient (CLI) | payer MEDICAID, SELFPAY ==
[2020-01-22 10:00] VITALS: BMI 31.1
[2020-01-26 13:49] LABS: Hematocrit 34.3 % (37-47); Hemoglobin 10.7 g/dL (12.0-15.0); Mean Corp Hgb Conc 31.2 g/dL (32-36); Mean Corpuscular Hgb 27.5 pg (27.0-32.0); Mean Corpuscular Volume 88.2 fL (81-99); Mean Platelet Vol. 10.5 fl (6.2-12.0); Platelet Count 352 K/mm3 (150-450); RBC Distribution Width CV 15.1 % (11.6-14.6); RBC Distribution Width SD 48.5 fl (35.1-43.9); Red Blood Count 3.89 M/mm3 (4.2-5.4); White Blood Count 7.6 K/mm3 (4.4-11.0)
[2020-01-26 14:09] LABS: ALB/GLOB Ratio 0.6 RATIO (0.9-2.4); AST(SGOT) 23 U/L (15-37); Alanine Aminotransfer ALT/SGPT 31 U/L (13-56); Albumin, Serum 2.5 g/dL (3.2-5.0); Alkaline Phosphatase 89 U/L (45-117); Anion Gap 5 (5-15); BUN 18 mg/dL (7-18); Calcium,Total 8.8 mg/dL (8.5-10.1); Chloride 109 mmol/L (98-107); Creatinine, Serum 0.67 mg/dL (0.55-1.02); EST Glomerular Filtration Rate 109 mL/min (>60); Est Glom Filt Rate - Afr Amer 132 mL/min (>60); Globulin 4.3 g/dL (2.2-4.2); Glucose 89 mg/dL (74-106); Protein, Total 6.8 g/dL (6.4-8.2); Sodium Level 142 mmol/L (136-145)
== END ==
PROVIDERS: PCP Student in an Organized Health Care Education/Training Program; Visit Provider Obstetrics & Gynecology
DX: D64.9 Anemia, unspecified (principal); L29.9 Pruritus, unspecified
CPT/HCPCS: 36415; 80053; 85027

== ENCOUNTER 2020-02-26 08:14 | Emergency (ER) | payer MEDICAID, SELFPAY ==
[2020-01-22 10:00] VITALS: BMI 31.1
[2020-02-26 08:15] VITALS: BP 121/76; PULSE 57; RESP 16; TEMP 36.7; O2SAT 100; BMI 31.1
--- NOTE | 2020-02-26 08:53 | ED.DCSUM_ITS ---
- ER Visit Summary Date of Service: 02/26/20 Chief Complaint: Vaginal bleeding History of Present Illness: The patient is a 34 F who presents with vaginal bleeding that became worse today. Patient is 6 weeks . Patient states she has been going through 2 pads per hour. Patient states that yester day she was going through 1 pad every 2 hours but her bleeding has increased. Patient states that 1 month ago she was having bleeding and required a blood transfusion. Patient states she also had endometritis at that time. Patient denies any abdominal pain or pelvic pain. Patient denies any fevers or chills. Patient denies any nausea or vomiting. Patient denies any dysuria or hematuria. Patient is 3 para 3. Physical Examination: Vital signs are stable. Patient is afebrile. Patient is in no acute distress. Oral mucosa is pink and moist. Neck is supple. Trachea is midline. There is no JVD noted. Heart was regular rate and rhythm. Lungs are clear and equal bilaterally. Abdomen is soft. Bowel sounds are normal. There is slight suprapubic tenderness. There is no rebound or guarding noted. Skin is warm dry. Cranial nerves II through XII are intact. There are no focal motor or sensory deficits noted. Extremities are intact. There is no calf tenderness or edema. Test Results: CBC was obtained. Hemoglobin was 11.1 which was increased from previous result on 01/26 which was 10.6. Emergency Department Course and Treatment: Review of previous records shows that the patient did have an ultrasound on 01/26/2020 and did not have any retained products of conception at that time. Patient still did not have any cramping or pain on reevaluation. Case was discussed with Dr. Santiago who is covering for Dr. Tom Mota. He is agreeable with the plan. Patient was instructed to get plenty of rest. Patient was instructed on signs and symptoms which should prompt return to the emergency department. Patient was instructed to follow-up with Dr. Tom Mota in 3 to 5 days. Patient understood and was agreeable with the plan. All questions were answered. Disposition: Discharge home Impression: Dysfunctional uterine bleeding This note was generated with RoomRevealation software. It may contain incorrect words, spelling, and punctuation that were not noted in review of the chart prior to signing ED Disposition - Plan for ED Patient: Disposition: Home or Assisted Living Diagnosis: Dysfunctional uterine bleeding Instructions: ED Bleeding Menstrual Heavy Referrals: Jacob Carrillo DO [Primary Care Provider] - 5-7 Days Cindy Durbni MD [STAFF PHYSICIAN] - 3-5 Days Additional Instructions: Your blood counts today were normal. Return to the emergency department if any lightheadedness, dizziness, severe pain, cramping, pallor of the skin, or if worse in any way.
[2020-02-26 08:59] LABS: Absolute Lymphocyte Count 1.92 X10^3/uL (0.83-4.51); Absolute Neutrophil Count 2.6 X10^3/uL (2.0-7.7); Basophil# 0.03 X10^3/uL; Basophil% 0.6 % (0-1); Eosinophil# 0.15 X10^3/uL; Eosinophils% 2.9 % (0-5); Hematocrit 37.3 % (37-47); Hemoglobin 11.1 g/dL (12.0-15.0); Lymphocyte # 1.92 X10^3/ul (4.0); Lymphocyte % 37.7 % (19-41); Mean Corp Hgb Conc 29.8 g/dL (32-36); Mean Corpuscular Hgb 26.1 pg (27.0-32.0); Mean Corpuscular Volume 87.6 fL (81-99); Mean Platelet Vol. 10.5 fl (6.2-12.0); Monocyte# 0.41 X10^3/uL; Monocyte% 8.1 % (0-10); NRBC Flagged by Analyzer 0 % (0-5); Neutrophil # 2.56 X10^3/uL (2.7-7.7); Neutrophil % 50.3 % (47-70); Platelet Count 258 K/mm3 (150-450); Red Blood Count 4.26 M/mm3 (4.2-5.4); White Blood Count 5.1 K/mm3 (4.4-11.0)
== END 2020-02-26 09:30 | disposition home or self-care (01) ==
PROVIDERS: Emergency Provider Emergency Medicine; PCP Student in an Organized Health Care Education/Training Program
DX: N93.8 Other specified abnormal uterine and vaginal bleeding (principal)
CPT/HCPCS: 85025; 99282; A4216

== ENCOUNTER 2020-04-06 05:56 | Day surgery (SDC) | payer MEDICAID, SELFPAY ==
[2020-04-06] VITALS (7 sets, daily range): BP systolic 102–110; BP diastolic 64–76; PULSE 56–79; RESP 14–16; TEMP 36.3–37.4; O2SAT 88–100; BMI 32.0
--- NOTE | 2020-04-06 | FALS_PTH ---
PATIENT: NENA RODGERS LOC: [facility] [place] U#:[id number] AGE/SX: 34/F ROOM: RE04/06/[address]: Dr. Cindy Mota MD : 1985 BED: DIS: 04/06/2020 SPEC #: [id number] RECD: 04/06/20 10:17 STATUS: OTTO REErnst #: [id number] ANA PAULA: 04/06/20 00:[address]: Cindy Matute DEPT: SURGICAL PATHOLOGY RECD BY: Marco Michael ENTERED: 04/06/20 10:18 SP TYPE: FALL TUBES OTHR DR: Dr. Jacob Carrillo, DO Tissues: Fallopian tube Procedures: Surgery Specimen Level II HEADER OPERATION: Laparoscopic salpingectomy PRE-OP DIAGNOSIS: Sterilization TISSUE SUBMITTED: Bilateral fallopian tubes MICROSCOPIC DIAGNOSIS Bilateral fallopian tubes, salpingectomy: Bilateral fallopian tubes including fimbrial ends, no pathologic diagnosis. A paratubal cyst. SJ:pam 04/07/20 MICROSCOPIC DESCRIPTION Slides are reviewed. GROSS DESCRIPTION Received in fixative is one container labeled with the patient's name and designated bilateral fallopian tubes. The specimen consists of bilateral fallopian tubes including fimbrial ends. The fallopian tubes are not identified as right or left. One fallopian tube measures 8.5 cm in length and 0.8 cm in diameter. A paratubal cyst is noted measuring 1 cm in greatest dimension. The second fallopian tubes measures 7?cm in length and 0.6 cm in diameter. Sections reveal unremarkable cut surfaces. Epic [facility] sections are submitted in two cassettes as follows: 1 - fallopian tube and paratubal cyst, 2 - second fallopian tube. / DEWEY:pam 04/06/20 TC:4 CPT: 59192 x2
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
[2020-04-06 06:28] LABS: Hematocrit 38.4 % (37-47); Hemoglobin 11.5 g/dL (12.0-15.0); Mean Corp Hgb Conc 29.9 g/dL (32-36); Mean Corpuscular Hgb 25.3 pg (27.0-32.0); Mean Corpuscular Volume 84.6 fL (81-99); Platelet Count 220 K/mm3 (150-450); RBC Distribution Width SD 49.6 fl (35.1-43.9); Red Blood Count 4.54 M/mm3 (4.2-5.4); White Blood Count 5.1 K/mm3 (4.4-11.0)
[2020-04-06 06:39] LABS: Partial Thromboplast Time 36.8 Seconds (24.1-36.2)
[2020-04-06 06:41] LABS: Internal QC Validated? YES +Cl - CLEAR BKGD; Pregnancy, Urine Negative Negative
[2020-04-06] MEDS: Lactated Ringers 1,000 ML 125 ML IV (06:57)
[2020-04-06] MEDS: Bupivacaine Mpf 0.5% 30 ML VIAL (07:51)
--- NOTE | 2020-04-06 09:55 | DCINST_ITS ---
- Discharge Diagnoses Reason(s) for Visit for Discharge Instructions: Laparoscopic tube removal You will use the following diet at home:: No restrictions Discharge Activity: Return to Normal Activity May resume sexual activity in: 4-6 weeks Lifting Restrictions: 10-20lb Call your doctor if your incision/area has: Continuous Slow Oozing, Sudden Increased Bleeding, Increased Pain/ Swelling, Increased Redness Call your doctor if you observe: Fever of 101 or Higher, Inability to urinate, Inability to have a bowel movement, Using more than one pad per hour, Shortness of breath, Chest pain, Calf discomfort, Uncontrolled pain Suture Line Care: Avoid Pulling/Pushing Remove Dressing in (days):: 1 Cleanse incision/area with: Soap & Water Allergies/Adverse Reactions: Allergies No Known Allergies Allergy (Verified 04/04/20 14:51) Medications to take at Discharge Ibuprofen 600 mg PO TID PRN #30 tab 04/06/20 Oxycodone [Oxyir] 5 mg PO Q6H PRN PRN 7 Days #20 tab 04/06/20 The following prescriptions were given: Ibuprofen 600 mg PO TID PRN #30 tab PRN Reason: Pain Or Fever Transmission Status: Received by [facility] Oxycodone [Oxyir] 5 mg PO Q6H PRN PRN 7 Days #20 tab PRN Reason: Pain Or Fever Prescription Printed Orders to be completed after discharge: Type & Screen Time Frame: 04/06/20, Facility: [facility], Location: Laboratory CBC-Complete Blood Cnt No Diff Time Frame: 04/06/20, Facility: [facility], Location: Laboratory Partial Thromboplast Time Time Frame: 04/06/20, Facility: [facility], Location: Laboratory Prothrombin Time w/INR Time Frame: 04/06/20, Facility: [facility], Location: Laboratory ,Urine Time Frame: 04/06/20, Facility: [facility], Location: Laboratory Primary Care Physician: Jacob Carrillo DO [Primary Care Provider] - Test Results: Test results from this visit will be discussed in further detail at your follow- up appointment, if applicable. Please Follow Up With: Cindy Durbin MD When: 4 weeks
--- NOTE | 2020-04-06 13:12 | PCM.OPRPT ---
Problem List (1) Encounter for sterilization Status: Acute Report of Operation Date of Procedure: 04/06/20 Pre-Operative Diagnosis: Sterilization request Post-Operative Diagnosis: Sterilization request Surgery/Procedure Performed:: Laparoscopic bilateral salpingectomy. Left ovarian cyst drainage Description of Surgical Findings:: Normal tubes, uterus and ovaries bottle line worker: Ayesha Verduzco Type of Anesthesia:: General Anesthesiologist: Rajesh Maddox Specimen's removed: bilateral tubes Estimated Blood Loss (mL): 5 Description of Procedure: The patient was brought to the operating room and signed and was performed. She was placed in the dorsal supine position and induced under general anesthesia and intubated. She was repositioned to dorsolithotomy and her arms were tucked at her sides. An examination under anesthesia was performed. The perineum and abdomen were prepped and draped in sterile fashion. Straight catheterization of the bladder was performed. Patient was placed into high lithotomy and a weighted speculum is placed into the vagina. Cervix was grasped using a Matias tenaculum. The uterus sounded to 7 cm. A ZSMSA CRANE ACQUISITION uterine manipulator was placed and secured and the tenaculum removed from the cervix. Patient was placed into low lithotomy attention turned to the abdomen. An infraumbilical incision was made and varies needle placed with successful hanging drop test and no aspirate. The abdomen was insufflated to 15 mmHg. The Veress needle was removed and 5 mm port was placed under laparoscopic guidance. Right and left lower quadrant T AP blocks were performed under laparoscopic guidance injecting half percent bupivacaine. Incisions were made at the sites and 5 mm trocar was also placed. The abdomen was inspected. The patient was placed into Trendelenburg pelvis further inspected. She had a hemorrhagic left ovarian cyst and a second larger cyst approximately 2 cm that appeared to be extruding from the ovarian cortex. The tubes were normal in appearance as was the uterus. The left cyst was abutting the distal tube. I dissected this cyst bluntly from the mesosalpinx distal tube. The mesosalpinx was serially clamped, coagulated and cut using the Enseal device level of the uterine cornua and salpingectomy performed and the tube was removed by the trocar. In similar fashion right salpingectomy was also performed. Attention was returned to the left adnexa cyst with cyst ruptured revealing clear fluid. The cyst was further decompressed and the procedure was complete. The abdomen was desufflated and the trochars removed. The skin was closed using 4-0 Monocryl by the SHROUD LINE TIER under my supervision. The ZUMI uterine manipulator was also removed. Patient was placed into the dorsal supine position, awakened, extubated and transferred to the recovery room without complication. Sponge counts and needle counts were correct. - Complications none - Admit VTE Documentation VTE Present on Admission: No VTE Mechan Device Prophylaxis: SCD's VTE Pharm Prophylaxis ordered?: No
== END 2020-04-06 12:43 | disposition home or self-care (01) ==
LOC: SDC 05:56 → AC 05:57
PROVIDERS: Anesthesiology; PCP Student in an Organized Health Care Education/Training Program; Referring Provider Obstetrics & Gynecology; Visit Provider Obstetrics & Gynecology
PROC: (CPT 58661; principal; 2020-04-06 07:15)
DX: Z30.2 Encounter for sterilization (principal); N83.202 Unspecified ovarian cyst, left side
CPT/HCPCS: 49322; 58661; 81025; 85027; 85610; 85730; 86850; 86900; 86901; 88302; J7120; C1760; J2405; Q9968

== ENCOUNTER 2020-07-08 20:15 | Emergency (ER) | payer MEDICAID, SELFPAY ==
[2020-04-06 06:36] VITALS: BMI 32.0
[2020-07-08 20:16] VITALS: BP 125/81; PULSE 65; RESP 18; TEMP 36.5; O2SAT 98; BMI 30.1
--- NOTE | 2020-07-08 20:32 | CT_ITS ---
STUDY: CT BRAIN WITHOUT CONTRAST REASON FOR EXAM: Female, 34 years old. Trauma RADIATION DOSAGE (If Supplied By Facility): CTDIvol = ( 44.99 ) mGy, DLP = ( 779.24 ) mGycm TECHNIQUE: Transaxial CT imaging of the brain was performed without administration of intravenous contrast material. Individualized dose optimization techniques were used for this CT. COMPARISON: No relevant priors. FINDINGS: Brain parenchyma is without focal lesions, mass effect, acute intracranial hemorrhage, extra parenchymal fluid collections, hydrocephalus or herniation. The skull is intact. CT/Brain/Head without Contrast IMPRESSION: 1. Normal CT brain. Electronically Signed: Robin Miranda, at 21:11 EDT Tel , Service support ,
--- NOTE | 2020-07-08 20:32 | CT_ITS ---
STUDY: CT CERVICAL SPINE WITHOUT CONTRAST REASON FOR EXAM: Female, 34 years old. Trauma RADIATION DOSAGE (If Supplied By Facility): CTDIvol = ( 18.70 ) mGy, DLP = ( 377.10 ) mGycm TECHNIQUE: High resolution transaxial imaging was performed without contrast material. Sagittal and coronal images were reconstructed. Individualized dose optimization techniques were used for this CT. COMPARISON: None FINDINGS: Craniocervical junction and cervical spine are intact and aligned. Mineralization is normal. Paraspinous soft tissues are normal. Spinal canal is patent at all levels. Neural foramina are patent. CT/Spine Cervical without Contras IMPRESSION: 1. Unremarkable cervical spine. Electronically Signed: Robin Miranda, at 21:13 EDT Tel , Service support ,
--- NOTE | 2020-07-08 21:23 | ED.VISSUMM ---
- ER Visit Summary Date of Service: 07/08/20 Chief Complaint: Fall History of Present Illness: The patient is a [address] Carrillo. She reports that she went to go down a slip and slide fell back and hit her head. She had a loss of consciousness for an unclear period of time. She initially had neck pain. She reports that that is improved. She is been nausea and vomited 3 times. She is not on blood thinners. She denies any other injuries. Physical Examination: Vitals: Stable. Afebrile. Neck: Mild diffuse tenderness outpatient from approximately C5-C7. Full ROM without difficulty. Back: No vertebral tenderness. General: A&O x 3. NAD. Cardiovascular exam: Regular rate and rhythm, no murmur, rub or gallop. Respiratory exam: Chest nontender. No crepitus. Clear to auscultation bilaterally. No wheezes or stridor. Abdominal exam: Soft, nontender, nondistended, normal bowel sounds. No pain in RUQ or LUQ specifically. No peritoneal signs. Extremity: Atraumatic. No pain with range of motion. Test Results: Clinical Impression(s) from Imaging Studies Brain CT 07/08/20 20:32 IMPRESSION: 1. Normal CT brain. Electronically Signed: Robin Miranda, at 21:11 EDT Tel , Service support , Cervical Spine CT 07/08/20 20:32 IMPRESSION: 1. Unremarkable cervical spine. Electronically Signed: Robin Miranda, at 21:13 EDT Tel , Service support , Emergency Department Course and Treatment: Patient refused pain or nausea medications. She is resting comfortably. Treatment Plan: I had a prolonged session the patient she does have a concussion. She will be discharged with Zofran. Instructed use Tylenol and/or ibuprofen for pain. Follow-up with her primary care physician 1 week for another exam. Return to the emergency department for any worsening symptoms. Disposition: To home in improved and stable condition. Impression: 1. Fall. 2. Concussion. 3. Cervical strain. This note was generated with Lance dictation software. It may contain incorrect words, spelling, and punctuation that were not noted in review of the chart prior to signing ED Disposition - Plan for ED Patient: Instructions: ED Concussion Prescriptions: Ondansetron [Zofran Odt] 4 mg PO Q8H PRN PRN #10 tablet PRN Reason: Nausea Referrals: Jacob Carrillo DO [Primary Care Provider] - 1 Week
[2020-07-08 21:38] VITALS: BP 117/84; PULSE 73; RESP 18; O2SAT 99
== END 2020-07-08 21:40 | disposition home or self-care (01) ==
LOC: ED 20:53
PROVIDERS: Emergency Provider Emergency Medicine; PCP Student in an Organized Health Care Education/Training Program
DX: S06.0X9A Concussion with loss of consciousness of unspecified duration, initial encounter (principal); S16.1XXA Strain of muscle, fascia and tendon at neck level, initial encounter; W19.XXXA Unspecified fall, initial encounter
CPT/HCPCS: 70450; 72125; 99283

== ENCOUNTER → 2020-12-06 10:54 | Outpatient (CLI) | payer MEDICAID, SELFPAY ==
[2020-12-08 08:16] LABS: Chlamydia By Nucleic Acid AMP Negative (Negative)
[2020-12-08 08:35] LABS: Gonococcus By Nucleic Acid AMP Negative (Negative)
[2020-12-11 20:48] LABS: HPV APTIMA, High Risk Negative (Negative)
== END ==
PROVIDERS: PCP Student in an Organized Health Care Education/Training Program; Visit Provider Obstetrics & Gynecology
DX: Z12.4 Encounter for screening for malignant neoplasm of cervix (principal); Z11.3 Encounter for screening for infections with a predominantly sexual mode of transmission
CPT/HCPCS: 87491; 87591; 87624; 88175; G0145

== ENCOUNTER → 2020-12-23 09:21 | Outpatient (CLI) | payer MEDICAID, SELFPAY ==
[2020-12-23 10:23] LABS: Free T3 2.5 pg/mL (2.18-3.98); T4 Free Direct 1.65 ng/dL (0.76-1.46); Thyroid Stim Hormone (TSH) 2.65 uIU/mL (0.358-3.74)
[2020-12-25 07:50] LABS: Progesterone Level 23.04 ng/mL (See Comment)
[2020-12-27 21:07] LABS: Thyroglobulin Antibody < 1.0 IU/mL (0.0-0.9); Thyroid Peroxidase AB < 9 IU/mL (0-34)
== END ==
PROVIDERS: PCP Student in an Organized Health Care Education/Training Program; Referring Provider Obstetrics & Gynecology; Visit Provider Obstetrics & Gynecology
DX: N92.0 Excessive and frequent menstruation with regular cycle (principal)
CPT/HCPCS: 36415; 84144; 84439; 84443; 84481; 86376; 86800

== ENCOUNTER → 2021-07-16 14:31 | Outpatient (CLI) | payer MEDICAID, SELFPAY | PROVIDERS: PCP Student in an Organized Health Care Education/Training Program; Referring Provider Obstetrics & Gynecology; Visit Provider Obstetrics & Gynecology | DX: Z01.818 Encounter for other preprocedural examination (principal) | CPT/HCPCS: 86850; 86900; 86901 ==

== ENCOUNTER 2021-07-19 09:50 | Day surgery (SDC) | payer MEDICAID, SELFPAY ==
[2021-07-12 12:53] LABS: Hematocrit 41.5 % (37-47); Hemoglobin 13.2 g/dL (12.0-15.0); Mean Corp Hgb Conc 31.8 g/dL (32-36); Mean Corpuscular Hgb 29.2 pg (27.0-32.0); Mean Corpuscular Volume 91.8 fL (81-99); Mean Platelet Vol. 10.3 fl (6.2-12.0); Platelet Count 221 K/mm3 (150-450); RBC Distribution Width CV 13.5 % (11.6-14.6); RBC Distribution Width SD 46.3 fl (35.1-43.9); Red Blood Count 4.52 M/mm3 (4.2-5.4); White Blood Count 4.7 K/mm3 (4.4-11.0)
[2021-07-19] VITALS (14 sets, daily range): BP systolic 73–127; BP diastolic 54–81; PULSE 50–75; RESP 16; TEMP 36–36.8; O2SAT 97–100; BMI 30.7
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
[2021-07-19 10:13] LABS: Internal QC Validated? YES +Cl - CLEAR BKGD; Pregnancy, Urine Negative Negative
[2021-07-19] MEDS: Lactated Ringers 1,000 ML 100 ML IV ×2 (10:38→12:21)
--- NOTE | 2021-07-19 11:25 | EMB_PTH ---
PATIENT: NENA RODGERS LOC: [facility] [place] U#:[id number] AGE/SX: 35/F ROOM: RE07/19/[address]: Dr. Cindy Mota MD : 1985 BED: DIS: 07/19/2021 SPEC #: [id number] RECD: 07/19/21 13:05 STATUS: OTTO REErnst #: [id number] ANA PAULA: 07/19/21 11:[address]: Cindy Matute DEPT: SURGICAL PATHOLOGY RECD BY: Sheila England ENTERED: 07/19/21 13:43 SP TYPE: ENDOM BX/C AI DR: Dr. Jacob Carrillo DO Tissues: Endometrium, NOS Procedures: Surgery Specimen Level IV HEADER OPERATION: Hysteroscopy, D & C Una PRE-OP DIAGNOSIS: Heavy and prolonged menstrual bleeding TISSUE SUBMITTED: Endometrial curettings MICROSCOPIC DIAGNOSIS Endometrium, biopsy: Secretory endometrium. AM:pam 07/20/2021 MICROSCOPIC DESCRIPTION Slides are reviewed. GROSS DESCRIPTION Received in fixative is one container labeled with the patient's name and designated endometrial curettings. The specimen consists of multiple irregular fragments of crowder-pink soft tissue mixed with blood clot that in aggregate measure 5 x 3 x 0.3 cm. A few of the pieces have polypoid appearance. The entire specimen is submitted in two cassettes. / SJ:pam 07/19/21 TC:5 CPT: 06171
[2021-07-19] MEDS: Lidocaine 1% (20 ml mdv) 20 ML Vial (11:39)
[2021-07-19] MEDS: Silver Nitrate (BKC) 1 EACH (12:01)
--- NOTE | 2021-07-19 12:03 | SUR.OPER ---
[address] Durbin at 1204.
--- NOTE | 2021-07-19 12:23 | PCM.DC ---
Discharge Instructions Diet Discharge Diet: No restrictions Activity Discharge Activity: Return to Normal Activity May resume sexual activity in: 4 weeks Dressing / Incision Call your doctor if you observe: Fever of 101 or Higher, Using more than 1 pad per hour, Shortness of breath, Chest pain, Calf discomfort and Uncontrolled pain Follow Up Care Please Follow Up With: Cindy Mota MD When: 2-4 weeks Test Results: Test results from this visit will be discussed in further detail at your follow-up appointment, if applicable. Discharge Plan Admission Primary Reason for Your Visit: Hysteroscopy, Dilation and Curettage (D&C), Endometrial ablation Attending Provider: Cindy Matute Primary Care Provider: Jacob Carrillo Instructions Patient Instructions: Endometrial Ablation Discharge Orders/Prescriptions Prescriptions: New ibuprofen 600 mg tablet 600 mg PO Q8H PRN (Reason: pain) Qty: 30 RF: 0 oxycodone 5 mg capsule 5 mg PO Q6H PRN (Reason: pain) 3 Days Qty: 3 RF: 0 Referrals / Follow Up: Jacob Carrillo DO [Primary Care Provider] - Disposition Disposition (needs filled in before D/C Order can be placed): Home, Self Care
--- NOTE | 2021-07-19 12:26 | OP.PCM_ITS ---
Problems Associated Problem List Diagnoses (1) S/P endometrial ablation: (2) Status post hysteroscopy: (3) Excessive and frequent menstruation: Report of Operation Date of Procedure: 07/19/21 Pre-Operative Diagnosis: 1. Menorrhagia Post-Operative Diagnosis: 1. Menorrhagia Surgery/Procedure Performed:: 1. Hysteroscopy 2. Dilation and curettage 3. Una endometrial ablation Description of Surgical Findings:: Normal-appearing uterine cavity with bilateral tubal ostia visualized Surgeon: Cindy Matute Type of Anesthesia: Local MAC Anesthesiologist: [place] Specimen's removed: Endometrial curettings Drains: Urine output 75 mL Estimated Blood Loss (mL): 10 Fluids Replaced: 900 mL Description of Procedure: 35-year-old para 3 with a history of menorrhagia refractory to medical management presents for scheduled hysteroscopy, dilation curettage, Una endometrial ablation. She has a history of prior tubal sterilization. She is counseled regarding management options including risks, benefits, indications and alternatives and desired to proceed. Informed consent was obtained prior to the procedure. Procedure: The patient was brought to the operating room and sinus performed. She is placed in the dorsal supine position and induced under MAC. She was repositioned to dorsolithotomy. The perineum was prepped and draped in sterile fashion with straight catheterization of the bladder performed. The patient was placed in the high lithotomy and a bivalve speculum was placed vaginally. 1% lidocaine was injected at the anterior cervical lip and a single-tooth tenaculum is placed at the site. A paracervical block was administered for a total of 20 cc of 1% lidocaine used during this case. The uterus sounded to 9 cm. The ce rvix was subsequently dilated hysteroscopy performed. I proceeded with the endometrial ablation using the Una system. The cervix was measured 3.5 cm and uterine cavity length was set to 5.5 cm. The Una array was introduced into the uterine cavity and deployed and secured. The ablation cycle was completed. The array was decompressed and removed from the uterine cavity. Repeat hysteroscopy was performed demonstrating global cavity ablation. The hysteroscope was removed. The tenaculum is removed from the cervix however the tenaculum site was not hemostatic. This area was compressed for approximately 3 minutes and silver nitrate was applied with good hemostasis obtained. The procedure was complete. The speculum was removed. The patient was placed into dorsal supine, awakened and transferred to the recovery room without complication. Sponge counts were correct x2. Complications None Admit VTE Documentation VTE Present on Admission: No VTE Mechan Device Prophylaxis: SCD's VTE Pharm Prophylaxis ordered?: No
[2021-07-19] MEDS: HYDROcodone Bitartrate/Apap 5/325 Tablet PO (12:50)
[2021-07-19] MEDS: Ketorolac 30 MG/ML Syringe IV (13:35)
--- NOTE | 2021-07-19 13:47 | SUR.PHASEII ---
Patient continues to be uncomfortable and experience b/l knee pain. Likely from OR positioning, possibly. This nurse medicated for nausea with 4mg zofran in PACU. Given norco 5mg/325mg in phase 2 after snack. patient experienced vomitting and nausea ~20 minutes after Po medicaiton. Treated with benadryl/ reglan combination per order. Patient continues to complain of pain. Consulted with Dr. Arenas who gave new order for IV tordol. Given. This nurse will continue to monitor. VSS. Patient's mother at bedside.
[2021-07-19] MEDS: proMETHazine 25 MG/ML Syringe 12.5 MG IM (14:36)
[2021-07-19] MEDS: HYDROmorphone 0.5 MG/0.5 ML SYRINGE IV (17:04)
== END 2021-07-19 19:18 | disposition home or self-care (01) ==
LOC: SDC 09:50 → AC 09:51 → MS3 07-20 09:58
PROVIDERS: PCP Student in an Organized Health Care Education/Training Program; Referring Provider Obstetrics & Gynecology; Visit Provider Obstetrics & Gynecology
PROC: 0U5B8ZZ Destruction of Endometrium, Via Natural or Artificial Opening Endoscopic (ICD-10-PCS; CPT 58558; principal; 2021-07-19 11:10)
DX: N92.0 Excessive and frequent menstruation with regular cycle (principal)
CPT/HCPCS: 58563; 36415; 81025; 85027; 87426; 88305; C9803; J7120; A4216; J2405

== ENCOUNTER 2023-05-29 07:16 | Day surgery (SDC) | payer OTHER, MEDICAID, SELFPAY ==
[2023-05-29] VITALS (7 sets, daily range): BP systolic 90–104; BP diastolic 60–80; PULSE 71–87; RESP 14–18; TEMP 36.3–36.9; O2SAT 97–100; BMI 28.2
[2023-05-29] MEDS: Lactated Ringers 1,000 ML 15 ML IV (07:47)
--- NOTE | 2023-05-29 09:39 | DCINST_ITS ---
Discharge Instructions Diet Discharge Diet: No restrictions Activity Discharge Activity: Return to Normal Activity Dressing / Incision Call your doctor if you observe: Fever of 101 or Higher, Inability to urinate and Inability to have a bowel movement Follow Up Care Please Follow Up With: Amisha Bowie MD When: office will call to set up appt for next week Test Results: Test results from this visit will be discussed in further detail at your follow- up appointment, if applicable. Discharge Plan Admission Attending Provider: Amisha Bowie Primary Care Provider: Jacob Carrillo Discharge Orders/Prescriptions Prescriptions: New oxycodone-acetaminophen [Percocet] 5-325 mg tablet 1 tab PO Q8H PRN (Reason: pain) 2 Days Qty: 6 0RF cephalexin [cephalexin] 500 mg capsule 500 mg PO Q12 3 Days Qty: 6 0RF Continued semaglutide (weight loss) 1 mg/0.5 mL Pen Injector 0.8 mg SUBCUT WE Rx Instructions: administer weeks 9 through 12 of therapy Referrals / Follow Up: Jacob Carrillo DO [Primary Care Provider] - Disposition Disposition (needs filled in before D/C Order can be placed): Home, Self Care
--- NOTE | 2023-05-29 09:42 | PCM.OPRPT ---
Report of Operation Date of Procedure: 05/29/23 Pre-Operative Diagnosis: intrinsic sphincter deficiency with stress incontinence Post-Operative Diagnosis: same Surgery/Procedure Performed:: cystoscopy Bulkamid injection Surgeon: Amisha Bowie Type of Anesthesia: MAC Description of Procedure: The patient is a 37-year-old female with a failed mid urethral sling still with stress incontinence secondary to intrinsic sphincter deficiency. Informed consent was obtained for Bulkamid injection and cystoscopy. The patient was taken to the operating room and placed in a supine position on the operating room table. Anesthesia monitored the head, neck, airway, IV access and vital signs throughout the case. Once anesthesia was appropriate ministered, the patient was placed into dorsolithotomy position was prepped and draped in usual sterile fashion. Once the special cystoscope was put together, it was inserted through the urethra into the urinary bladder and the needle was inserted at the 7 o'clock position a full 2 cm into the urinary bladder per the marking. At this time, the whole apparatus was pulled back measuring 2 cm from the bladder neck and just the needle was advanced approximately 0.75 cm superficially at the 7 o'clock position at which point a pillow was formed with injection of half of a syringe. The needle obturator was twisted to the 5 o'clock position and the process was repeated with the bevel pointing towards the lumen, at the same distance from the bladder neck as the first injection. This process was then repeated at the 2 o'clock position in the 10 o'clock position. At this time the needle was retracted and the scope was pulled distally revealing complete coaptation of the urethral mucosa. The cystoscope was completely removed and the patient was then awakened and taken to the recovery room in good condition. There were no complications during this procedure. Complications none Admit VTE Documentation VTE Present on Admission: Yes VTE Mechan Device Prophylaxis: SCD's VTE Pharm Prophylaxis ordered?: No Reason prophylaxis not ordered:: Treatment Not Indicated
[2023-05-29] MEDS: Cefazolin 2 GM in 0.9% Normal Saline 100 ML IV (09:48)
[2023-05-29] MEDS: Lidocaine Jelly 2% 20 ML Syringe (URO-JET) 1 APPLIC (10:03)
== END 2023-05-29 11:42 | disposition home or self-care (01) ==
LOC: SDC 07:19 → AC 07:20
PROVIDERS: PCP Student in an Organized Health Care Education/Training Program; Referring Provider Urology; Visit Provider Urology
PROC: 3E0K8GC Introduction of Other Therapeutic Substance into Genitourinary Tract, Via Natural or Artificial Opening Endoscopic (ICD-10-PCS; CPT 52287; principal; 2023-05-29 09:00)
DX: N36.42 Intrinsic sphincter deficiency (ISD) (principal); N39.3 Stress incontinence (female) (male); N36.41 Hypermobility of urethra; N39.41 Urge incontinence; N94.12 Deep dyspareunia
CPT/HCPCS: 51715; 00910; J7120; J2405

== ENCOUNTER 2023-07-04 08:00 | Outpatient (RCR) | payer OTHER, MEDICAID, SELFPAY ==
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
--- NOTE | 2023-07-16 08:48 | HP.PTDCNRP_ITS ---
Patient Information Patient Information: NENA RODGERS was seen in my office for initial evaluation on 06/12/23. The following Plan of Care was established for this patient: POC Established Initial Frequency: 1x/Week Initial Duration: 2-4 Months Anticipated Interventions Patient/Client Instruction: Educate patient on: Condition, Plan of Care and Risk Factors For the Purpose of:: To improve self management Therapeutic Exercise to Include: Strength training, Flexibilty training and Neuromotor development For the Purpose of:: To decrease pain, To increase ROM, To improve muscle performance and motor function, To increase tolerance to activity/condition/position and To improve ability of physical actions for h ome/community/work/leisure Manual Therapy Techniques to Include: Soft tissue mobilization Comment: CONSIDER NEEDED FOR BIOFEEDBACK WELL. For the Purpose of:: To decrease pain and To improve muscle performance and motor function Last Seen Last Seen: This patient was last seen in our office . 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 At this point I will be discontinuing this patient from physical therapy. I would be happy to see this patient again in the future if found appropriate by the physician. Thank you! Fiorella Lance, PT, Cert MDT
== END 2023-07-04 19:00 | disposition home or self-care (01) ==
LOC: PT 08:00
PROVIDERS: PCP Student in an Organized Health Care Education/Training Program; Visit Provider Urology
DX: R32 Unspecified urinary incontinence (principal)
CPT/HCPCS: 97162; 97530